=== PATIENT | male | born 1960 | race Caucasian/White ===

== ENCOUNTER 2022-02-19 21:29 | Inpatient (IN) ==
--- NOTE | 2022-02-19 22:51 | Emergency Department Note ---
History of Present Illness General Chief complaint: Mental Health Evaluation Stated complaint: OVERDOSE Time Seen by Provider: 02/19/22 22:21 Source: patient and other (manager business information Monique) Mode of arrival: other (Police) Limitations: patient cooperation History of Present Illness Provider complaint: Overdose This is a 61-year-old male brought in for mental health evaluation. He is under a 302 warrant by the police. Apparently the patient sent multiple text messages to his contact stating that he wanted to end his life. Police got multiple 911 calls regarding this. When they went to check on him in his house he was difficult to arouse and required a sternal rub. He admitted to the police that he took a handful of Vicodin and drink wine. He had also told his ex- via text message that he had taken a handful of Vicodin. He currently denies taking overdose or being suicidal. Police state that he told them that he was suicidal and that if he was sent home he would go to [facility] and kill himself. The patient is adamantly denying suicidality or overdose. He states that he is upset because he is having custody issues over his 5-year-old son. His son currently lives in [place] with his ex-girlfriend. He states that he believes the child is being abused by his mother but that the "[employer]" scrap dealer does not believe him and keeps giving him back to his mother. The patient denie s any physical complaints. He denies any fever, headache, cough or cold symptoms, chest pain, shortness of breath, abdominal pain, vomiting, diarrhea or urinary symptoms. The patient states that he has no history of suicide attempt in the past. He denies any admissions for mental health. He is not on any medications for mental health and does not see a counselor. He does not drink alcohol regularly. He does not have any access to firearms. Home Medications Medication Instructions Recorded Confirmed Type acetaminophen 325 mg capsule 650 mg PO BID PRN pain 05/07/19 02/20/22 History Allergies Allergy/AdvReac Type Severity Reaction Status Date / Time No Known Allergies Allergy Verified 05/20/19 08:55 Past Med/Surg History Medical History Calcific tendinitis of left shoulder Family History Mother Breast cancer Father Lung cancer Social History Smoking Status: Unknown if ever smoked Hx Alcohol Use: Yes (couple drinks/week) Hx Substance Use: No Preferred Language: Citizen Of [place] Visual Impairment: No Limitations Hearing Ability: Normal current occupational status: employed 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 and A total of 10 systems reviewed and were otherwise negative Physical Exam Vital Signs Vital Signs - 24 hr 02/19/22 21:46 02/19/22 23:07 Temperature 36.8 C Temperature Source Oral Pulse Rate 106 H Pulse Rate [Finger] 93 H Pulse Rhythm Regular Pulse Strength Normal Respiratory Rate 18 18 Respiratory Effort / Characteristics Non-Labored Respiratory Depth Normal Respiratory Pattern Regular Blood Pressure 152/84 H Blood Pressure [Right Radial Artery] 138/82 Blood Pressure Mean 106 Blood Pressure Mean [Right Radial Artery] 100 Blood Pressure Position Sitting Pulse Oximetry 94 96 Oxygen Delivery Method Room Air Room Air Sepsis Recent Fever Within 48 Hours No Sepsis New/Unexplained Change in Mental Status N/A Sepsis Action Taken by Nursing No Action Required Constitutional: Vital signs reviewed. Eyes: Pupils are equal round reactive to light. Conjunctiva are noninjected. ENT: Mucous membranes are slightly dry. Neck supple without meningeal signs. Respiratory: Clear to auscultation bilaterally. Breath sounds are equal bilaterally. Cardiovascular: Regular rate and rhythm. No rubs or gallops. GI: Soft, nondistended and nontender. Bowel sounds are present. Musculoskeletal: No peripheral edema. Integumentary: No cyanosis. or jaundice. Neurological: The patient is awake and alert. Normal gait. Moves all extremities. Psychiatric: Patient is very agitated. Pressured speech. Medical Decision Making Differential Diagnosis Alcohol intoxication, mood disorder, suicide attempt, suicidal ideation, drug overdose Medical Records Attestation: I reviewed the patient's medical records. I did perform a limited focused review of portions of the patient's old chart on the electronic medical record. The patient has had no recent pertinent visits to this hospital. Home Medications Current Medication List: was personally reviewed by me Laboratory Data Attestation: I reviewed the patient's lab results. Result diagrams: 02/19/22 21:53 09/04/22 21:53 Lab Results 02/19/22 02/19/22 02/19/22 Range/Units 21:53 21:53 21:53 WBC 5.62 (4.8-10.8) K/ul RBC 4.70 (4.63-6.08) M/uL Hgb 14.4 (14.0-18.0) g/dl Hct 41.1 (40.1-51.0) % MCV 87.4 (80.0-100.0) fL MCH 30.6 (25.0-34.0) pg MCHC 35.0 (32.0-36.0) g/dL RDW Std Deviation 39.0 (36.4-46.3) fL RDW Coeff of Rossi 12.0 (11.5-14.5) % Plt Count 214 (130-400) K/uL MPV 9.8 (9.4-12.4) fL Immature Gran % (Auto) 0.4 % Neut % (Auto) 71.4 % Lymph % (Auto) 21.7 % [place] % (Auto) 5.0 % Eos % (Auto) 1.1 % Baso % (Auto) 0.4 % Neut # (Auto) 4.02 (1.4-6.5) K/uL Lymph # (Auto) 1.22 (1.2-3.4) K/uL [place] # (Auto) 0.28 (0.24-0.82) K/uL Eos # (Auto) 0.06 (0-0.50) K/uL Baso # (Auto) 0.02 (0-0.2) K/uL Immature Gran # (Auto) 0.02 (0.00-0.02) K/uL Sodium 141 (136-145) mmol/L Potassium 3.3 L (3.5-5.1) mmol/L Chloride 107 (98-107) mmol/L Carbon Dioxide 22 (21-32) mmol/L Anion Gap 12 H (3-11) BUN 15 (6-23) mg/dl Creatinine 1.01 (0.6-1.4) mg/dl Est Cr Clr Drug Dosing 76.8 ml/min Est GFR ( Amer) 92.6 ml/min Est GFR (Non-Af Amer) 79.9 ml/min BUN/Creatinine Ratio 14.9 (10-20) Glucose 111 H (70-99(Fasting)) mg/dl Calcium 9.4 (8.5-10.1) mg/dl Total Bilirubin 0.4 (0.2-1.0) mg/dl AST 11 L (13-39) U/L ALT 10 (7-52) U/L Alkaline Phosphatase 61 (34-104) U/L Total Protein 7.2 (6.0-8.3) gm/dl Albumin 4.4 (3.4-5.0) gm/dl Globulin 2.8 (2.5-4.0) gm/dl Albumin/Globulin Ratio 1.6 (0.9-2) TSH 4.728 H (0.300-4.500) uIu/ml Free T4 0.89 (0.61-1.60) ng/dl Urine Color Urine Appearance (Clear) Urine pH (4.5-7.5) Ur Specific [place] (1.000-1.030) Urine Protein (Negative) Urine Glucose (UA) (Negative) Urine Ketones (Negative) Urine Blood (Negative) Urine Nitrite (Negative) Urine Bilirubin (Negative) Urine Urobilinogen (Negative) Ur Leukocyte Esterase (Negative) Salicylates (3.0-30) mg/dl Urine Opiates Screen (Neg) Ur Methadone, Qual (Neg) Acetaminophen (10-30) ug/ml Urine Barbiturates (Neg) Ur Phencyclidine (PCP) (Neg) U Amphetamin/Meth Scrn (Neg) MDMA (Ecstasy) Screen (Neg) U Benzodiazepines Scrn (Neg) Ur Cocaine Metabolite (Neg) U Marijuana (THC) Screen (Neg) Ethyl Alcohol mg/dL (<10.0) mg/dl SARS-CoV-2, RNA, NAAT (NEGATIVE) 02/19/22 02/19/22 02/19/22 Range/Units 21:53 21:53 22:22 WBC (4.8-10.8) K/ul RBC (4.63-6.08) M/uL Hgb (14.0-18.0) g/dl Hct (40.1-51.0) % MCV (80.0-100.0) fL MCH (25.0-34.0) pg MCHC (32.0-36.0) g/dL RDW Std Deviation (36.4-46.3) fL RDW Coeff of Rossi (11.5-14.5) % Plt Count (130-400) K/uL MPV (9.4-12.4) fL Immature Gran % (Auto) % Neut % (Auto) % Lymph % (Auto) % [place] % (Auto) % Eos % (Auto) % Baso % (Auto) % Neut # (Auto) (1.4-6.5) K/uL Lymph # (Auto) (1.2-3.4) K/uL [place] # (Auto) (0.24-0.82) K/uL Eos # (Auto) (0-0.50) K/uL Baso # (Auto) (0-0.2) K/uL Immature Gran # (Auto) (0.00-0.02) K/uL Sodium (136-145) mmol/L Potassium (3.5-5.1) mmol/L Chloride (98-107) mmol/L Carbon Dioxide (21-32) mmol/L Anion Gap (3-11) BUN (6-23) mg/dl Creatinine (0.6-1.4) mg/dl Est Cr Clr Drug Dosing ml/min Est GFR ( Amer) ml/min Est GFR (Non-Af Amer) ml/min BUN/Creatinine Ratio (10-20) Glucose (70-99(Fasting)) mg/dl Calcium (8.5-10.1) mg/dl Total Bilirubin (0.2-1.0) mg/dl AST (13-39) U/L ALT (7-52) U/L Alkaline Phosphatase (34-104) U/L Total Protein (6.0-8.3) gm/dl Albumin (3.4-5.0) gm/dl Globulin (2.5-4.0) gm/dl Albumin/Globulin Ratio (0.9-2) TSH (0.300-4.500) uIu/ml Free T4 (0.61-1.60) ng/dl Urine Color Yellow Urine Appearance Clear (Clear) Urine pH 5.5 (4.5-7.5) Ur Specific [place] 1.007 (1.000-1.030) Urine Protein Negative (Negative) Urine Glucose (UA) Negative (Negative) Urine Ketones Trace H (Negative) Urine Blood Negative (Negative) Urine Nitrite Negative (Negative) Urine Bilirubin Negative (Negative) Urine Urobilinogen Negative (Negative) Ur Leukocyte Esterase Negative (Negative) Salicylates < 3.0 L (3.0-30) mg/dl Urine Opiates Screen (Neg) Ur Methadone, Qual (Neg) Acetaminophen < 3 L (10-30) ug/ml Urine Barbiturates (Neg) Ur Phencyclidine (PCP) (Neg) U Amphetamin/Meth Scrn (Neg) MDMA (Ecstasy) Screen (Neg) U Benzodiazepines Scrn (Neg) Ur Cocaine Metabolite (Neg) U Marijuana (THC) Screen (Neg) Ethyl Alcohol mg/dL 147.2 H (<10.0) mg/dl SARS-CoV-2, RNA, NAAT (NEGATIVE) 02/19/22 02/19/22 02/20/22 Range/Units 22:22 Unknown 01:36 WBC (4.8-10.8) K/ul RBC (4.63-6.08) M/uL Hgb (14.0-18.0) g/dl Hct (40.1-51.0) % MCV (80.0-100.0) fL MCH (25.0-34.0) pg MCHC (32.0-36.0) g/dL RDW Std Deviation (36.4-46.3) fL RDW Coeff of Rossi (11.5-14.5) % Plt Count (130-400) K/uL MPV (9.4-12.4) fL Immature Gran % (Auto) % Neut % (Auto) % Lymph % (Auto) % [place] % (Auto) % Eos % (Auto) % Baso % (Auto) % Neut # (Auto) (1.4-6.5) K/uL Lymph # (Auto) (1.2-3.4) K/uL [place] # (Auto) (0.24-0.82) K/uL Eos # (Auto) (0-0.50) K/uL Baso # (Auto) (0-0.2) K/uL Immature Gran # (Auto) (0.00-0.02) K/uL Sodium (136-145) mmol/L Potassium (3.5-5.1) mmol/L Chloride (98-107) mmol/L Carbon Dioxide (21-32) mmol/L Anion Gap (3-11) BUN (6-23) mg/dl Creatinine (0.6-1.4) mg/dl Est Cr Clr Drug Dosing ml/min Est GFR ( Amer) ml/min Est GFR (Non-Af Amer) ml/min BUN/Creatinine Ratio (10-20) Glucose (70-99(Fasting)) mg/dl Calcium (8.5-10.1) mg/dl Total Bilirubin (0.2-1.0) mg/dl AST (13-39) U/L ALT (7-52) U/L Alkaline Phosphatase (34-104) U/L Total Protein (6.0-8.3) gm/dl Albumin (3.4-5.0) gm/dl Globulin (2.5-4.0) gm/dl Albumin/Globulin Ratio (0.9-2) TSH (0.300-4.500) uIu/ml Free T4 (0.61-1.60) ng/dl Urine Color Urine Appearance (Clear) Urine pH (4.5-7.5) Ur Specific [place] (1.000-1.030) Urine Protein (Negative) Urine Glucose (UA) (Negative) Urine Ketones (Negative) Urine Blood (Negative) Urine Nitrite (Negative) Urine Bilirubin (Negative) Urine Urobilinogen (Negative) Ur Leukocyte Esterase (Negative) Salicylates (3.0-30) mg/dl Urine Opiates Screen Neg (Neg) Ur Methadone, Qual Neg (Neg) Acetaminophen < 3 L (10-30) ug/ml Urine Barbiturates Neg (Neg) Ur Phencyclidine (PCP) Neg (Neg) U Amphetamin/Meth Scrn Neg (Neg) MDMA (Ecstasy) Screen Neg (Neg) U Benzodiazepines Scrn Neg (Neg) Ur Cocaine Metabolite Neg (Neg) U Marijuana (THC) Screen Neg (Neg) Ethyl Alcohol mg/dL (<10.0) mg/dl SARS-CoV-2, RNA, NAAT NEGATIVE (NEGATIVE) MDM Narrative I did evaluate the patient as noted above. He is very agitated and uncooperative on initial evaluation. He is here under a 302 by the police. He told him that he would kill himself if he were sent home today. He stated specifically what road he would kill himself on as well. I did order a urine analysis. I did order and review the patient's blood work as noted in the electronic medical record. CBC is unremarkable. CMP demonstrates mild hypokalemia at 3.3. TSH is elevated but free T4 is within normal limits. Urine tox screen is negative. Screening for salicylates and acetaminophen are both negative. Serum alcohol is 147.2. A second acetaminophen level was sent. This was less than 3. The patient was evaluated by the mental health case advocate. I did also reevaluate the patient. He is now cooperative. He states that he became intoxicated and said stupid things. He stated that he did not feel suicidal. He stated that he was just frustrated with certain things in his life, particularly of the custody issue with his 5-year-old son in [place]. With his permission both the case advocate and I spoke to his ex- Hollie Dodson as well as his son Antonino. His ex- was not able to give us any sort of determination of whether or not he might be at risk for suicide although she did state that he has no prior history and has made no indication of being suicidal recently. His son also stated that he has had no prior history. He felt it was unlikely that his father was suicidal but he does live in [place] and it is unclear whether or not he would share his thoughts with him. I did have another long discussion with the patient as well as the case advocate. I did explain to him that I felt he needed inpatient psychiatric care as well as a safe environment given his behavior and statements made today. I did feel he was a risk to himself and showed poor judgment and insight as well as impulsivity. He refused inpatient treatment and so I did sign the 302. Bed search is currently underway. The patient was signed out to Dr. Palacio pending final disposition. Impression & Plan Mood disorder, Alcoholic intoxication, Suicidal ideation Discharge Plan Visit Data Chief Complaint: Mental Health Evaluation Stated Complaint: OVERDOSE ED Provider: Juan Jose Thomas Discharge Problem: Mood disorder, Alcoholic intoxication, Suicidal ideation Patient Disposition: Still a Patient Forms Stand Alone Forms: My [facility], Suicide Prevention Resources Prescriptions Prescriptions: No Action acetaminophen 325 mg capsule 650 mg PO BID PRN (Reason: pain) Referrals Referrals: PCP,NO [Primary Care Provider] -
[2022-02-19 22:57] LABS: Basophils # (auto) 0.02 K/uL (0-0.2); Basophils % (auto) 0.4 %; Eosinophils # (auto) 0.06 K/uL (0-0.50); Eosinophils % (auto) 1.1 %; Hematocrit (blood only) 41.1 % (40.1-51.0); Hemoglobin 14.4 g/dl (14.0-18.0); Immature Granulocytes # (auto) 0.02 K/uL (0.00-0.02); Immature Granulocytes % (auto) 0.4 %; Lymphocytes # (auto) 1.22 K/uL (1.2-3.4); Lymphocytes % (auto) 21.7 %; Mean Corpuscular Hemoglobin 30.6 pg (25.0-34.0); Mean Corpuscular Volume 87.4 fL (80.0-100.0); Mean Platelet Volume 9.8 fL (9.4-12.4); Monocytes # (auto) 0.28 K/uL (0.24-0.82); Neutrophils # (auto) 4.02 K/uL (1.4-6.5); Neutrophils % (auto) 71.4 %; Platelet Count 214 K/uL (130-400); White Blood Count 5.62 K/ul (4.8-10.8)
[2022-02-19 23:10] LABS: Albumin Globulin Ratio 1.6 (0.9-2); Albumin Level 4.4 gm/dl (3.4-5.0); BUN Creatinine Ratio 14.9 (10-20); Bilirubin,Total 0.4 mg/dl (0.2-1.0); Calcium 9.4 mg/dl (8.5-10.1); Creatinine Clr Calc Pharmacy 76.8 ml/min; Est GFR (African American) 92.6 ml/min; Est GFR (Non-African American) 79.9 ml/min; Globulin 2.8 gm/dl (2.5-4.0); Potassium 3.3 mmol/L (3.5-5.1); Total Protein 7.2 gm/dl (6.0-8.3)
[2022-02-19 23:11] LABS: Acetaminophen < 3 ug/ml (10-30); Salicylate < 3.0 mg/dl (3.0-30)
[2022-02-19 23:23] LABS: Thyroid Stimulating Hormone 4.728 uIu/ml (0.300-4.500)
[2022-02-19 23:54] LABS: Appearance Urine Clear (Clear); Bilirubin Urine Negative (Negative); Blood Urine Negative (Negative); Color Urine Yellow; Glucose Urine UA Negative (Negative); Ketones Urine Trace (Negative); Leukocyte Esterase Urine Negative (Negative); Nitrite Urine Negative (Negative); Protein Urine Negative (Negative); Specific Gravity Urine 1.007 (1.000-1.030); Urobilinogen Urine Negative (Negative); pH Urine 5.5 (4.5-7.5)
[2022-02-19 23:59] LABS: T4 Free Thyroxine 0.89 ng/dl (0.61-1.60)
[2022-02-20 00:14] LABS: Amphetamines+Metham, Urine Neg (Neg); Barbiturates, Urine Neg (Neg); Benzodiazepine, Urine Neg (Neg); Cocaine, Urine Neg (Neg); MDMA (Ecstacy), Urine Neg (Neg); Methadone, Urine Neg (Neg); Opiate, Urine Neg (Neg); Phencyclidine, Urine Neg (Neg)
--- NOTE | 2022-02-20 04:30 | Emergency Department Note ---
ED Visit Note Patient is under 302 we was pending disposition plan and signed over by Dr. Thomas; was admitted to [facility] for psychiatric evaluation at 4:30 AM .
[2022-02-20] MEDS ORDERED: ALUMINUM/MAGNESIUM SUSP 30 ML UDC PO PRN (05:11)
[2022-02-20] MEDS ORDERED: ACETAMINOPHEN 325 MG TAB PO PRN (05:11)
[2022-02-20] MEDS ORDERED: BISMUTH SUBSALICYLATE LIQD 236 ML PO PRN (05:11)
[2022-02-20] MEDS ORDERED: MAGNESIUM HYDROXIDE SUSP 30 ML UDC PO PRN (05:11)
[2022-02-20] MEDS ORDERED: SODIUM CHLORIDE 0.65% NA SOLN 45 ML (OCEAN) PRN (05:11)
[2022-02-20] MEDS ORDERED: hydrOXYzine HCl 25 MG TAB PO PRN ×2 (05:11)
[2022-02-20] MEDS ORDERED: LORazepam 1 MG TAB PO PRN ×3 (05:15)
[2022-02-20] MEDS ORDERED: Ativan PO Alcohol Withdrawal--Active Protocol PO PRN (05:15)
[2022-02-20] MEDS: FOLIC ACID 1 MG TAB PO SCH (08:12)
[2022-02-20] MEDS: THIAMINE HCL 100 MG TAB PO SCH (08:12)
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
[2022-02-20] MEDS ORDERED: MELATONIN 3 MG TAB PO PRN (11:11)
[2022-02-20] MEDS ORDERED: traZODone HCL 50 MG TAB PO PRN (11:11)
[2022-02-21] MEDS: THIAMINE HCL 100 MG TAB PO SCH (08:43)
[2022-02-21] MEDS: FOLIC ACID 1 MG TAB PO SCH (08:43)
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
--- NOTE | 2022-02-22 11:16 | Discharge Summary ---
Date of Service February 22, 2022 History of Present Illness Mark was brought to the ED via police after sending text messages to his ex- stating his intent to by suicide and that he had ingested Vicodin to this end as well as sending texts to other friends/family stating "I'm going to end my life" who also called 911 due to concern for his safety. He was very sedated when his ex- arrived and when police arrived he confirmed taking Vicodin and drinking wine as part of a suicide attempt. On arrival to the ED he denied taking any Vicodin reporting only ingestion of alcohol and once sober continued to deny any SI but given concerning statements to police and family he was placed on a 302 commitment. UDS was negative for any opioids nor other substances except alcohol. Notably he had also made statements to his ex- as noted in the 302 warrant stating "Mark state he wanted to be left alone to , as well as going to [address] and killing himself tomorrow if he is released tomorrow from [facility]". He denies having taken any Vicodin he notes he doesn't have it in the house and he's not sure why he even said that to police. He states yesterday he had friends over, had gone hiking, was having fun and then drinking vodka and wine together socially. He estimates he consumed about 2-3 shots of vodka and 1-2 glasses of wine. He notes he never drinks hard liquor so this was unusual and thinks it impacted him more than he realized. A legal custody case has been ongoing for the last 1.5 years regarding his 5 yo son and "the stress of it must have just boiled over". He describes recent stressors including ongoing custody issues regarding his 5 year old son who is currently living with his ex- girlfriend in [place] with an upcoming legal decision to be issued by the director of housing imminently. He reports his ex-girlfriend has been limiting his ability to talk with his son or contact him. This weekend he hasn't been able to talk to him and he really wanted to share some new hot wheel cars he bought him and his ex- girlfriend wouldn't let him talk to him or even share photos of him. He notes this has made him feel really "sad" and helpless because he feels like "his hands are tied" in regards to trying to get his son back. He's worried his legal rights and visitation could be taken away which is incredibly worrisome. He notes emotionally it's been so hard and he thinks this weekend he "just hit a brick wall". He states he's been using alcohol more this summer to cope with insomnia. Often wakes up at 3am and can't fall back asleep. He denies any current SI and feels like last night was "a cry for help". He endorses difficulty sleeping, due to ruminative worries about what will happen with his son's custody. He uses hiking and mountain biking and being with friends to help him cope with anxiety and stress. He denies hopelessness. He notes "I really just needs tools on how to cope with this situation of trying to co-parent and how to deal with it". He is not currently prescribed any psychiatric medications. Psychiatric ROS notable for no current nor history of symptoms of buster, psychosis, PTSD, OCD nor eating disorder. Physical Exam Vital Signs (Past 24 Hours) Last Vital Signs Temp 36.4 C L 02/22/22 06:31 Pulse 66 02/22/22 06:31 Resp 16 02/22/22 06:31 BP 130/81 02/22/22 06:31 Pulse Ox 96 02/20/22 18:11 O2 Del Method 02/20/22 18:11 See admission H&P and DOD summary. Principal Diagnosis Unspecified depressive disorder and Generalized anxiety disorder Psychiatric Data See daily stay summary. In short, patient was engaged with the social/therapeutic milieu of the unit, safety was maintained and the patient was cooperative with care. He was started on trazodone 25mg qhs prn for insomnia, no other medications were added as he preferred to start with outpatient therapy to help with depression and anxiety which was felt to be reasonable. If in the future depression does not improve with therapy then would recommend initiation of a low dose SSRI medication. Recommend he follows up with his PCP regarding elevated TSH level on admission though free T4 was normal at that time. A family session was held and safety plan was completed prior to discharge. He actively and insightfully participated in safety planning and in discussions about ways to seek support and recognizing warning signs and utilizing coping skills. He plans to avoid alcohol use after discharge. Reviewed books and mindfulness resources to help develop increased coping skills in the outpatient setting. Reviewed importance of seeking emergency care should SI re-occur or should they feel unsafe in the future which they agree to do. On the day of discharge he stated his mood was "good" and remained future-oriented including spending time with his older sons, hearing back on a custody decision regarding his young son, returning to work, talking with his sister, checking in with his neighbors and friends, mountain biking and going on hikes with friends, going to his niece's wedding this weekend and engaging in aftercare appointments for therapy and with his new PCP. Day of Discharge Assessment Today the patient voices readiness for discharge. They note improvement in mood and anxiety. They deny thoughts of harm to self or others. Thoughts are organized and they are clinically improved from admission. There is no evidence of psychosis. They improved in the hospital with support and medication adjustments. They agree to take medications as prescribed and keep follow-up appointments. At the time of the discharge they are deemed to be stable and manfred ropriate for outpatient level of care. They are not deemed to be at imminent risk of harm to self or others. They are aware of emergency and crisis services. Knows to call 911 or go to nearest emergency care center if in a crisis which cannot be handled as an outpatient. Transition of Care Transition Of Care Record: was reviewed with the patient Advance Directives Advance Directives Information Provided: Yes Advance Directives: No Mental Health Advance Directive: No Advance Directives on File: No Living Will: No Power of Biztalk Software Developer: No Advance Directives Reason:: Declines as Mental Health Visit. Suicide Risk Level Suicide Risk Level Comments: Acute risk is low given improvement in mood, denial of SI, lack of access to lethal means, plan to avoid substance use, improvement in sleep, hopefulness. Chronic risk is moderate given multiple non-modifiable risk factors including his age, gender, single, periods of impulsivity, stress of custody case (and risk could increase acutely after ruling if he loses custody) but also with protective factors including many supports, desire to be available for his young son and eagerness to begin therapy. Counseled on ways to reduce acute and chronic risk including engaging with outpatient providers, using safety plan if needed, utilizing supports, taking medication as needed for help with sleep and consideration of SSRI if mood symptoms worsen in the future, and using coping skills. Modifiable risk factors of SI, anxiety and depression were addressed during hospitalization through development of new coping skills, family meeting, safety planning, and medication adjustments and risk factor of alcohol use which he plans to avoid moving forward. Risk Factors Assessment Male: Yes : Yes Do You Have Access To A Gun?: No Substance Use Disorders: Yes Previous Attempt: No Previous Psychiatric Hospitalization: No Hopelessness: No Protective Factors Assessment Responsible for Young Children: Yes Employed: Yes Stable Relationships: Yes Supportive Family: Yes Discharge Data Lab Results 02/19/22 02/19/22 02/19/22 21:53 21:53 21:53 WBC 5.62 RBC 4.70 Hgb 14.4 Hct 41.1 MCV 87.4 MCH 30.6 MCHC 35.0 RDW Std Deviation 39.0 RDW Coeff of Rossi 12.0 Plt Count 214 MPV 9.8 Immature Gran % (Auto) 0.4 Neut % (Auto) 71.4 Lymph % (Auto) 21.7 Antelope % (Auto) 5.0 Eos % (Auto) 1.1 Baso % (Auto) 0.4 Neut # (Auto) 4.02 Lymph # (Auto) 1.22 Antelope # (Auto) 0.28 Eos # (Auto) 0.06 Baso # (Auto) 0.02 Immature Gran # (Auto) 0.02 Sodium 141 Potassium 3.3 L Chloride 107 Carbon Dioxide 22 Anion Gap 12 H BUN 15 Creatinine 1.01 Est Cr Clr Drug Dosing 76.8 Est GFR ( Amer) 92.6 Est GFR (Non-Af Amer) 79.9 BUN/Creatinine Ratio 14.9 Glucose 111 H Calcium 9.4 Total Bilirubin 0.4 AST 11 L ALT 10 Alkaline Phosphatase 61 Total Protein 7.2 Albumin 4.4 Globulin 2.8 Albumin/Globulin Ratio 1.6 TSH 4.728 H Free T4 0.89 Urine Color Urine Appearance Urine pH Ur Specific [place] Urine Protein Urine Glucose (UA) Urine Ketones Urine Blood Urine Nitrite Urine Bilirubin Urine Urobilinogen Ur Leukocyte Esterase Salicylates Urine Opiates Screen Ur Methadone, Qual Acetaminophen Urine Barbiturates Ur Phencyclidine (PCP) U Amphetamin/Meth Scrn MDMA (Ecstasy) Screen U Benzodiazepines Scrn Ur Cocaine Metabolite U Marijuana (THC) Screen Ethyl Alcohol mg/dL SARS-CoV-2, RNA, NAAT 02/19/22 02/19/22 02/19/22 21:53 21:53 22:22 WBC RBC Hgb Hct MCV MCH MCHC RDW Std Deviation RDW Coeff of Rossi Plt Count MPV Immature Gran % (Auto) Neut % (Auto) Lymph % (Auto) Antelope % (Auto) Eos % (Auto) Baso % (Auto) Neut # (Auto) Lymph # (Auto) Antelope # (Auto) Eos # (Auto) Baso # (Auto) Immature Gran # (Auto) Sodium Potassium Chloride Carbon Dioxide Anion Gap BUN Creatinine Est Cr Clr Drug Dosing Est GFR ( Amer) Est GFR (Non-Af Amer) BUN/Creatinine Ratio Glucose Calcium Total Bilirubin AST ALT Alkaline Phosphatase Total Protein Albumin Globulin Albumin/Globulin Ratio TSH Free T4 Urine Color Yellow Urine Appearance Clear Urine pH 5.5 Ur Specific [place] 1.007 Urine Protein Negative Urine Glucose (UA) Negative Urine Ketones Trace H Urine Blood Negative Urine Nitrite Negative Urine Bilirubin Negative Urine Urobilinogen Negative Ur Leukocyte Esterase Negative Salicylates < 3.0 L Urine Opiates Screen Ur Methadone, Qual Acetaminophen < 3 L Urine Barbiturates Ur Phencyclidine (PCP) U Amphetamin/Meth Scrn MDMA (Ecstasy) Screen U Benzodiazepines Scrn Ur Cocaine Metabolite U Marijuana (THC) Screen Ethyl Alcohol mg/dL 147.2 H SARS-CoV-2, RNA, NAAT 02/19/22 02/19/22 02/20/22 22:22 Unknown 01:36 WBC RBC Hgb Hct MCV MCH MCHC RDW Std Deviation RDW Coeff of Rossi Plt Count MPV Immature Gran % (Auto) Neut % (Auto) Lymph % (Auto) Antelope % (Auto) Eos % (Auto) Baso % (Auto) Neut # (Auto) Lymph # (Auto) Antelope # (Auto) Eos # (Auto) Baso # (Auto) Immature Gran # (Auto) Sodium Potassium Chloride Carbon Dioxide Anion Gap BUN Creatinine Est Cr Clr Drug Dosing Est GFR ( Amer) Est GFR (Non-Af Amer) BUN/Creatinine Ratio Glucose Calcium Total Bilirubin AST ALT Alkaline Phosphatase Total Protein Albumin Globulin Albumin/Globulin Ratio TSH Free T4 Urine Color Urine Appearance Urine pH Ur Specific [place] Urine Protein Urine Glucose (UA) Urine Ketones Urine Blood Urine Nitrite Urine Bilirubin Urine Urobilinogen Ur Leukocyte Esterase Salicylates Urine Opiates Screen Neg Ur Methadone, Qual Neg Acetaminophen < 3 L Urine Barbiturates Neg Ur Phencyclidine (PCP) Neg U Amphetamin/Meth Scrn Neg MDMA (Ecstasy) Screen Neg U Benzodiazepines Scrn Neg Ur Cocaine Metabolite Neg U Marijuana (THC) Screen Neg Ethyl Alcohol mg/dL SARS-CoV-2, RNA, NAAT NEGATIVE Hospital Course (1) Depression, unspecified: (2) Alcoholic intoxication: (3) Suicidal ideation: (4) Insomnia: (5) TSH elevation: Plan 02/21/22: Safety plan and family meeting. Continue current treatment plan. 02/20/22: The patient was admitted to the [facility] ([facility]) on q15 min checks (behavioral with suicide precautions) for safety. The patient will participate in group, recreational, and milieu therapies and will be offered additional individual and family sessions as clinically appropriate. -doesn't currently have a PCP, will need PCP f/up for TSH monitoring -melatonin 3mg qhs prn -trazodone 25mg qhs prn -he's very interested in starting outpatient therapy to help him cope with the stresses related to the custody kelly -AWSS with thiamine and folic acid Mental Health & Subst Abuse Tx Therapist Name of Therapist: Ely Ferraro Therapist's Date of Therapist Appointment: 03/01/22 Time of Therapist Appointment: 11:30 AM Therapy Appointment Comment: [address], [address] [place] Therapist Release of Information: Obtained, Reviewed and Signed Photonics Engineering Technologist Name of Photonics Engineering Technologist: None Post Discharge Appointments Primary Care Physician Name Of Family Doctor: Angeline Pond [facility] Date of Appointment with PCP: 02/23/22 Time of Appointment with PCP: 11:05am arrival 11:20am Provider Appointment Comment: [address], [place] [address] Primary Care Release of Information: Obtained, Reviewed and Signed Contact Information Discharge Discharge Address: [address] [place] [address] Discharge Plan Discharge Items Patient Disposition: Home - Self-Care Reason For Visit: MDD Discharge Diagnosis: Unspecified depression and Generalized anxiety disorder Activity: Resume your previous activity Non-emergency contact: Primary Care Provider and Therapist Call non-emergency contact if: you have any medication questions and your sym ptoms worsen Follow-up/Referrals: PCP,NO [Primary Care Provider] - Diet: Regular Addtl Attending Provider Instructions: Discussed optional resource of Headspace. SPECIAL CARE INSTRUCTIONS: 1. Follow through with your scheduled aftercare appointments. If unable to keep an appointment, please call to reschedule. 2. Take your medication only as prescribed. Medication should not be changed or stopped without the approval of your doctor. In the event of worsening symptoms or concerns about side effects, contact your doctor immediately. 3. Utilize new healthy coping skills, anger management skills, and stress management skills learned during your hospitalization. Journal feelings and process them with a support person. Identify stressors or situations that may result in relapse, deterioration or inappropriate behaviors and develop a plan to deal with those issues. 4. If your coping skills are ineffective and you are in crisis, contact your outpatient providers for direction. If unable to reach your providers, please call the [facility] CRISIS LINE AT , go to the [facility] walk-in center at [address], [place], or go to the closest Emergency Room. 5. Avoid alcohol and un-prescribed drugs. 6. You have been provided with the Mental Health Advance Directives Pamphlet for your review. 7. Your condition is stable for discharge to outpatient level of care, but recovery is an ongoing process. Ifthoughts to harm yourself or others return, follow the safety plan developed during your stay. Planning for a safe return home includes securing weapons. Our treatment team recommends weaponsbe removed from the home until your outpatient provider reassesses your progress. In rare cases where the items themselvescannot be removed, guns and ammunitionshould be secured separatelyand keys stored by a reliable personoutside of the home. If you were admitted on an involuntary commitment, the police or other legal authorities may be involved in this process. AFTERCARE APPOINTMENTS: * Please call your insurance company prior to your scheduled appointment to confirm your aftercare providers are covered. Take your insurance information to your appointments. WHO TO CALL AND WHEN: Medical Emergencies: For questions or emergencies related to your hospital stay, please contact the Inpatient Behavioral Health Unit at [phone]. A chainstitch felled seam operator is on-call 08/01 for the Behavioral Health Unit for emergencies At any time you feel your situation is an emergency, you may also call 911 immediately. Pending Studies at Discharge: No Stand-Alone Forms: My [facility] Medications and DC Order Prescriptions: New melatonin 3 mg Tablet 3 mg PO HS PRN (Reason: insomnia ) Qty: 1 0RF trazodone 50 mg Tablet 25 mg PO HS PRN (Reason: insomnia/depression) Qty: 30 0RF Discharge Orders: Discharge Order (Routine); Ordered 02/22/22 Ordered By: Preeti Gonzalez Admission Data Admit Date/Time: 02/20/22 04:12 Attending Provider: Preeti Gonzalez Admit Provider: Preeti Gonzalez Primary Care Provider: PCP,NO Other Interventions: Discharge Summary Assessment (RN) Last Done: 02/22/22 11:16 PSY Interdisciplinary Discharge Planning Last Done: 02/22/22 11:18 Coding Level of Care Code 43062 D/C day mgmt > 30 min Diagnoses Depression, unspecified F32.A Alcoholic intoxication F10.929 Suicidal ideation R45.851 Insomnia G47.00 TSH elevation R79.89 Time Spent (min) 45
== END 2022-02-22 12:39 | disposition home or self-care (01) | DRG 880 ==
LOC: ED 21:29 → 3S 02-20 04:12

== ENCOUNTER 2024-10-21 19:02 | Observation (INO) ==
[2024-10-21] MEDS: OPTIRAY 320 100ml IV ONE (19:25)
[2024-10-21 19:26] LABS: iSTAT Creatinine 1.4 mg/dl (0.6-1.3); iSTAT Hemoglobin 15.3 g/dl (14.0-18.0); iSTAT Ionized Calcium 1.22 mmol/l (1.12-1.32); iSTAT Potassium 4.1 mmol/L (3.3-5.0)
[2024-10-21] MEDS: OPTIRAY 320 125ml IV ONE (19:27)
[2024-10-21 19:28] LABS: Basophils # (auto) 0.02 K/uL (0.00-0.20); Basophils % (auto) 0.3 %; Eosinophils # (auto) 0.18 K/uL (0.00-0.50); Eosinophils % (auto) 2.3 %; Hematocrit (blood only) 43.3 % (42.0-52.0); Hemoglobin 15.6 g/dl (14.0-18.0); Immature Granulocytes # (auto) 0.02 K/uL (0.01-0.20); Immature Granulocytes % (auto) 0.3 %; Lymphocytes # (auto) 1.73 K/uL (1.20-3.40); Mean Corpuscular Hemoglobin 30.2 pg (25.0-34.0); Mean Corpuscular Volume 83.8 fL (80.0-100.0); Mean Platelet Volume 9.6 fL (9.4-12.4); Monocytes # (auto) 0.56 K/uL (0.11-0.59); Monocytes % (auto) 7.1 %; Neutrophils # (auto) 5.37 K/uL (1.40-6.50); Platelet Count 225 K/uL (130-400); RDW Coefficient of Variation 12.2 % (11.5-14.5); RDW Standard Deviation 37.2 fL (36.4-46.3); Red Blood Count 5.17 M/uL (4.70-6.10); White Blood Count 7.88 K/ul (4.8-10.8)
[2024-10-21 19:47] LABS: Albumin Globulin Ratio 1.5 (0.9-2); Albumin Level 4.6 gm/dl (3.4-5.0); BUN Creatinine Ratio 10.9 (10-20); Bilirubin,Total 0.5 mg/dl (0.2-1.0); Calcium 9.4 mg/dl (8.6-10.3); Creatinine Clr Calc Pharmacy 56.4 ml/min; Magnesium 2.1 mg/dl (1.7-2.4); Total Protein 7.6 gm/dl (6.0-8.3)
[2024-10-21 19:53] LABS: Troponin I High Sensitivity 4.8 pg/ml (0-20)
[2024-10-21 19:57] LABS: Partial Thromboplastin Ratio 0.9; Partial Thromboplastin Time 23 Seconds (21-31); Prothrombin Time 10.6 Seconds (9.0-12.0)
--- NOTE | 2024-10-21 20:23 | CT Scan Report ---
EXAM: CT angio neck with con CLINICAL HISTORY: neuro deficit, acute stroke suspected TECHNIQUE: Axial CT angiography of the neck was done with contrast and sagittal and coronal reformats with MIP reconstructions. One of the following dose reduction techniques were utilized for this exam: Automated exposure control, adjustment of the mA and/or kV according to patient size, use of iterative reconstruction. One of these 3D techniques was utilized: Maximum Intensity Pixel (MIP), 3D Reconstructed Images, Volume Rendered Images, Surface Shaded Rendering. COMPARISON: None. FINDINGS: The aortic arch shows mild atherosclerotic changes. Normal branching pattern noted. Bilateral common carotid arteries appear normal in caliber and contrast opacification. Calcified plaques are seen at the osteoproximal segments of internal carotid arteries, without significant luminal narrowing. The cervical portions of bilateral internal carotid arteries appear normal in caliber and contrast opacification. Bilateral external carotid arteries appear normal in caliber and contrast opacification. The visualized portions of bilateral vertebral arteries appear normal in caliber and contrast opacification. No arteriovenous malformation was noted. IMPRESSION: No critical stenosis in CT angiography of neck. The report was ready at 07:15 PM SCHOOL CUSTODIAN, 10/21/2024 and the call was completed at at 07:20 PM [facility], 10/21/[address] Lange was informed regarding the Negative stroke results. Electronically signed by Boogie Perez 10-21-2024 8:21 PM
--- NOTE | 2024-10-21 20:25 | CT Scan Report ---
EXAM: CT angio head w con CLINICAL HISTORY: neuro deficit, acute stroke suspected TECHNIQUE: Axial CT angiography of the head was done with 115 ml optiray 320 IV contrast and sagittal and coronal reformats with MIP reconstructions. One of the following dose reduction techniques were utilized for this exam: Automated exposure control, adjustment of the mA and/or kV according to patient size, use of iterative reconstruction. One of these 3D techniques was utilized: Maximum Intensity Pixel (MIP), 3D Reconstructed Images, Volume Rendered Images, Surface Shaded Rendering. COMPARISON: CT head same day reviewed, 10/21/2024 18:15:26 MAINTENANCE PARTS TECHNICIAN. FINDINGS: The cavernous portions of bilateral internal carotid arteries show intimal calcification without significant luminal narrowing. Bilateral middle cerebral arteries appear normal in caliber and contrast opacification. Right anterior cerebral artery is hypoplastic with a dominant left anterior cerebral artery, giving cortical branches to both sides, normal variant. The basilar artery and bilateral posterior cerebral arteries appear normal in caliber and contrast opacification. The visualized vertebral arteries appear normal in caliber and contrast opacification. No evidence of definite thrombus / arteriovenous malformation. IMPRESSION: No critical stenosis in CT angiography of the head. The report was ready at 07:15 PM MAINTENANCE PARTS TECHNICIAN, 10/21/2024 and the call was completed at at 07:20 PM [facility] [[email or web address]], 10/21/[address] Lange was informed regarding the Negative stroke results. Electronically signed by Boogie Perez 10-21-2024 8:22 PM
--- NOTE | 2024-10-21 20:25 | CT Scan Report ---
EXAM: CT head/brain wo con CLINICAL HISTORY: neuro deficit, acute stroke suspected TECHNIQUE: Axial non-contrast CT scan of the brain was performed from the skull base to the high parietal region. One of the following dose reduction techniques were utilized for this exam: Automated exposure control, adjustment of the mA and/or kV according to patient size, use of iterative reconstruction. COMPARISON: none. FINDINGS: Brain Parenchyma: Normal attenuation of the cerebral hemispheres, cerebellum, and brainstem. No evidence of acute infarct, hemorrhage, or mass effect. No abnormal areas of hypo- or hyperattenuation. Ventricular System: Ventricles are normal in size and configuration. No evidence of hydrocephalus or ventricular enlargement. Subarachnoid Spaces: Normal sulci and cisterns. No evidence of subarachnoid hemorrhage or extra-axial fluid collections. Cerebellum and Brainstem: Normal size and signal. No masses, lesions, or areas of abnormal density. Orbits: Normal appearance of the globes, optic nerves, and extraocular muscles. No evidence of orbital masses or abnormal density. Sinuses: Clear paranasal sinuses. No evidence of sinusitis or mucosal thickening. Mastoid Air Cells: Clear mastoid air cells. No evidence of mastoiditis. Skull: Normal skull morphology. IMPRESSION: 1. Normal CT of the head without contrast. 2. No evidence of acute infarct or hemorrhage. 3. Early signs of acute infarction may not be detected by CT scan and if clinically indicated, further evaluation by diffusion-weighted MRI may be considered. The report was ready at 07:15 PM [facility], 10/21/2024 and the call was completed at at 07:20 PM [facility], 10/21/[address] Lange was informed regarding the Negative stroke results. Electronically signed by Boogie Perez 10-21-2024 8:22 PM
--- NOTE | 2024-10-21 20:42 | History & Physical Report ---
Date of Service October 21, 2024 Assessment & Plan (1) Stroke-like symptoms: (2) Depression, unspecified: (3) Insomnia: (4) Hypothyroidism: Plan Please see Dr. Luque's addendum for assessment and plan details. I spent a total of 60minutes coordinating, documenting, and providing care for this patient excluding time spent in the performance of separately billed services or time spent by another provider/QHP. History of Present Illness Chief Complaint: strokelike symptoms Primary Care Provider: Gabbi Pond PA-C This is a 64yo M with PMH of acquired hypothyroidism, GERD, history of alcohol dependence and other medical problems listed below who presents with weakness and numbness of R side that started this evening. Patient was in normal state of health until this afternoon when he was driving around town running an errand when he felt "like I was going to blackout". Symptoms resolved quickly and he continued driving to complete errands and returned home. Was attempting to power wash his back porch when sensation occurred again but resolved when he sat down. During a Zoom meeting around 1800, patient developed numbness in right arm extending up to jaw and right side of face. Symptoms did not resolve and was home alone, so he walked into his backyard to get his neighbor's attention, who suggested he come in for further evaluation. Patient decided he wanted to wait at home for 30 minutes to see if symptoms would subside. When standing up from chair felt weak and believes he fell to the ground but is unsure of any further details and event was unwitnessed. Was ultimately driven by his neighbor to the ED for further evaluation. During time of evaluation in ED, he states the numbness in right arm has resolved and speech intact. States he still has some paresthesias of his right face. Denies any weakness at rest but feels he would have a hard time staying balanced if he were to stand up. Was evaluated by [facility] and TNK was not administered. Denies any fever, chills, recent illness, chest pain, palpitations, shortness of breath, nausea, vomiting, abdominal pain, dysuria, diarrhea or constipation. Does not feel confused. Endorses significant amount of emotional stress over the past week due to ongoing custody kelly and conflict with his resident director. History of alcohol dependence per chart review - endorsing drinking 1-2 IPAs 4 nights / week. Follows at [facility] for therapy and states he has PTSD and mild depression. Does not take medication for these conditions. Allergies Allergy/AdvReac Type Severity Reaction Status Date / Time No Known Allergies Allergy Verified 10/21/24 19:28 Home Medications Medication Instructions Recorded Confirmed Type trazodone 50 mg tablet 25 mg (1/2 x 50 mg) PO HS PRN 02/22/22 10/21/24 Rx insomnia/depression #30 tabs levothyroxine 75 mcg tablet 75 mcg PO DAILYBB 10/21/24 10/21/24 History Past Med/Surg History Problem List (Updated 10/22/24 @ 00:41 by Kaia Lange MD) Stroke-like symptoms (Acute) Medical History Hypothyroidism Insomnia Depression, unspecified Suicide attempt Calcific tendinitis of left shoulder Suicidal ideation Surgical History History of ear surgery Family History Mother Breast cancer Father Lung cancer Social History Smoking Status: Never smoker Second Hand Exposure: No; Do You Dip or Chew Tobacco: No; Tobacco Cessation Education Requested by Patient: No Hx Alcohol Use: Yes Alcohol type: beer Hx Substance Use: No Preferred Language: Citizen Of [place] Communication Ability: Effective Visual Impairment: No Limitations Hearing Ability: Normal 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 Physical Exam Physical Exam: General Appearance: WD/WN, vitals as above, NAD, sitting up in bed, pleasant, sporadic conversation but re-directable Head: normocephalic, atraumatic Eyes: normal inspection, PERRL, conjunctivae normal, anicteric sclerae ENT: external ear and nose normal, oropharynx normal Neck: normal visual inspection Respiratory: normal respiratory effort, lungs clear to auscultation, no wheeze, rales, rhonchi. No accessory muscle use Cardiovascular: regular rate, rhythm, normal peripheral pulses, no BLE edema Chest: normal inspection of chest Abdomen/GI: normal bowel sounds, soft, nontender, no hepatosplenomegaly Extremities/Musculoskeletal: no cyanosis or clubbing, extremities motor strength 5/5 Neurologic: PERRL, EOMI, accommodation nl, no face palsy, no dysarthria, CN's II-XI intact bilaterally and moves all extremities, active ROM in all 4 quadrants, 5/5 JEFE RUE, LUE and LLL. Initially 4/5 strength in RLE but when retested minutes later was 5/5 Psychiatric: A+Ox3, anxious Skin: no rashes, normal color, warm/dry Results & Data Results & Data Vital Signs (Past 12 Hours) Vital Signs Temp Pulse Resp BP Pulse Ox O2 Del Method 10/21/24 20:18 72 18 96 10/21/24 20:15 156/100 H 10/21/24 20:15 156/100 H 10/21/24 20:06 72 12 97 10/21/24 20:00 80 15 97 10/21/24 20:00 179/106 H 10/21/24 20:00 179/106 H 10/21/24 20:00 179/106 H 10/21/24 20:00 179/106 H 10/21/24 19:51 75 16 97 10/21/24 19:42 75 16 97 10/21/24 19:34 167/109 H 10/21/24 19:33 77 22 98 10/21/24 19:30 180/111 H 10/21/24 19:30 180/111 H 10/21/24 19:30 81 10/21/24 19:27 79 19 96 10/21/24 19:24 80 20 97 10/21/24 19:23 181/111 H 10/21/24 19:23 181/111 H 10/21/24 19:12 83 17 97 10/21/24 19:10 187/106 H 10/21/24 19:10 187/106 H 10/21/24 19:10 187/106 H 10/21/24 19:10 187/106 H 10/21/24 19:09 Room Air 10/21/24 19:04 36.6 C 69 17 180/107 H 97 Room Air 10/21/24 19:02 97 Room Air Laboratory Results Short CBC 10/21/24 Range/Units 19:12 WBC 7.88 (4.8-10.8) K/ul Hgb 15.6 (14.0-18.0) g/dl Hct 43.3 (42.0-52.0) % Plt Count 225 (130-400) K/uL BMP 10/21/24 19:12 Sodium 138 Potassium 4.0 Chloride 103 Carbon Dioxide 31 BUN 14 Creatinine 1.28 Glucose 107 H Calcium 9.4 Liver Function 10/21/24 Range/Units 19:12 Total Bilirubin 0.5 (0.2-1.0) mg/dl AST 14 (13-39) U/L ALT 13 (7-52) U/L Alkaline Phosphatase 61 (34-104) U/L Albumin 4.6 (3.4-5.0) gm/dl Diagnostic Findings Head CT 10/21/24 19:08 EXAM: CT head/brain wo con CLINICAL HISTORY: neuro deficit, acute stroke suspected TECHNIQUE: Axial non-contrast CT scan of the brain was performed from the skull base to the high parietal region. One of the following dose reduction techniques were utilized for this exam: Automated exposure control, adjustment of the mA and/or kV according to patient size, use of iterative reconstruction. COMPARISON: none. FINDINGS: Brain Parenchyma: Normal attenuation of the cerebral hemispheres, cerebellum, and brainstem. No evidence of acute infarct, hemorrhage, or mass effect. No abnormal areas of hypo- or hyperattenuation. Ventricular System: Ventricles are normal in size and configuration. No evidence of hydrocephalus or ventricular enlargement. Subarachnoid Spaces: Normal sulci and cisterns. No evidence of subarachnoid hemorrhage or extra-axial fluid collections. Cerebellum and Brainstem: Normal size and signal. No masses, lesions, or areas of abnormal density. Orbits: Normal appearance of the globes, optic nerves, and extraocular muscles. No evidence of orbital masses or abnormal density. Sinuses: Clear paranasal sinuses. No evidence of sinusitis or mucosal thickening. Mastoid Air Cells: Clear mastoid air cells. No evidence of mastoiditis. Skull: Normal skull morphology. IMPRESSION: 1. Normal CT of the head without contrast. 2. No evidence of acute infarct or hemorrhage. 3. Early signs of acute infarction may not be detected by CT scan and if clinically indicated, further evaluation by diffusion-weighted MRI may be considered. The report was ready at 07:15 PM [facility], 10/21/2024 and the call was completed at at 07:20 PM [facility], 10/21/[address] Lange was informed regarding the Negative stroke results. Electronically signed by Boogie Perez 10-21-2024 8:22 PM Head CTA 10/21/24 19:08 EXAM: CT angio head w con CLINICAL HISTORY: neuro deficit, acute stroke suspected TECHNIQUE: Axial CT angiography of the head was done with 115 ml optiray 320 IV contrast and sagittal and coronal reformats with MIP reconstructions. One of the following dose reduction techniques were utilized for this exam: Automated exposure control, adjustment of the mA and/or kV according to patient size, use of iterative reconstruction. One of these 3D techniques was utilized: Maximum Intensity Pixel (MIP), 3D Reconstructed Images, Volume Rendered Images, Surface Shaded Rendering. COMPARISON: CT head same day reviewed, 10/21/2024 18:15:26 [facility]. FINDINGS: The cavernous portions of bilateral internal carotid arteries show intimal calcification without significant luminal narrowing. Bilateral middle cerebral arteries appear normal in caliber and contrast opacification. Right anterior cerebral artery is hypoplastic with a dominant left anterior cerebral artery, giving cortical branches to both sides, normal variant. The basilar artery and bilateral posterior cerebral arteries appear normal in caliber and contrast opacification. The visualized vertebral arteries appear normal in caliber and contrast opacification. No evidence of definite thrombus / arteriovenous malformation. IMPRESSION: No critical stenosis in CT angiography of the head. The report was ready at 07:15 PM [facility], 10/21/2024 and the call was completed at at 07:20 PM [facility], 10/21/[address] Lange was informed regarding the Negative stroke results. Electronically signed by Boogie Perez 10-21-2024 8:22 PM Neck CTA 10/21/24 19:08 EXAM: CT angio neck with con CLINICAL HISTORY: neuro deficit, acute stroke suspected TECHNIQUE: Axial CT angiography of the neck was done with contrast and sagittal and coronal reformats with MIP reconstructions. One of the following dose reduction techniques were utilized for this exam: Automated exposure control, adjustment of the mA and/or kV according to patient size, use of iterative reconstruction. One of these 3D techniques was utilized: Maximum Intensity Pixel (MIP), 3D Reconstructed Images, Volume Rendered Images, Surface Shaded Rendering. COMPARISON: None. FINDINGS: The aortic arch shows mild atherosclerotic changes. Normal branching pattern noted. Bilateral common carotid arteries appear normal in caliber and contrast opacification. Calcified plaques are seen at the osteoproximal segments of internal carotid arteries, without significant luminal narrowing. The cervical portions of bilateral internal carotid arteries appear normal in caliber and contrast opacification. Bilateral external carotid arteries appear normal in caliber and contrast opacification. The visualized portions of bilateral vertebral arteries appear normal in caliber and contrast opacification. No arteriovenous malformation was noted. IMPRESSION: No critical stenosis in CT angiography of neck. The report was ready at 07:15 PM [facility], 10/21/2024 and the call was completed at at 07:20 PM [facility], 10/21/[address] Lange was informed regarding the Negative stroke results. Electronically signed by Boogie Perez 10-21-2024 8:21 PM Supervising Physician Co-Signing Physician Notes IM ATTENDING : Patient seen and examined. History obtained from patient, family, and records. Concur with salient points upon review of preceding documentation by Ms. Tiki Sousa PA-C. In addition, patient denies seizures. Transient tinnitus symptoms in the right ear AD : Impacted cerumen, TM not visualized : Patent EAC, intact TM I take responsibility for plan of care below. FINAL ASSESSMENT AND PLAN as follows : TIA presenting as waxing/waning RUE numbness more pronounced on standing position as per patient Hypertension, elevated secondary to above Hypothyroidism, euthyroid as of today's TSH History cutaneous neurofibromatosis as per records Past alcohol abuse OBS Medical telemetry Neurochecks Check orthostatic vitals Aspirin for stroke prevention, permissive hypertension until stroke ruled out MRI brain, TTE for stroke workup Further management contingent on above workup results Ceruminolytic application for right ear DVT prophylaxis. Lovenox subcu Full code I spent a total of 30 minutes coordinating, documenting, and providing care for this patientexcludingtime spent by another provider/QHP. Text document was generated using [employer] voice recognition software. It may contain grammatical or spelling errors. Kindly contact undersigned for clarification of any documentation item in question.
--- NOTE | 2024-10-21 20:43 | Emergency Department Note ---
ED DC CONDITION Conditon at Discharge Condition at Discharge: Fair Impression & Plan Stroke-like symptoms ED Provider Note NAME: KYLE ELLIS AGE: 64 SEX: M : 1960 ARRIVES VIA: Walk-In INFORMANT: Patient, ED PROVIDER(S): Kaia Lange MD CHIEF COMPLAINT: Confusion, right arm weakness/ HPI: This is a 64-year-old male presented for confusion. Patient states that he was on the phone when the presenting of light asked "are you okay ". He states he fell somewhat confused and does not member what else happened. He states he feels numbness in his right arm and is possibly weak. He reports no fall, trauma. Slight headache at this time. He states he felt like he had difficulty finding words. ROS: See above HPI for pertinent positives & negatives. A total of 10 systems reviewed and were otherwise negative. PAST MEDICAL HISTORY: See Below PAST SURGICAL HISTORY: See Below FAMILY HISTORY: See Below SOCIAL HISTORY: See Below HOME MEDICATIONS: See Below ALLERGIES: See Below VITALS: See Below PHYSICAL EXAMINATION: General: resting comfortably in no acute distress Head: Normocephalic and atraumatic Eyes: Normal inspection, extraocular muscles intact Ear, nose, throat: Normal external exam Neck: Normal range of motion Respiratory: lungs clear to auscultation bilaterally Cardiovascular: Regular rate/rhythm, no murmur GI: soft, nontender, no guarding or rebound Extremities: nontender, moves all extremities Neuro: 4/5 strength in the right lower extremity, 5/5 strength in the left lower extremity, right upper extremity with apparent motor drift, left lower extremity 5/5 strength Skin: Warm, dry, and intact MEDICAL DECISION MAKING: This is a 64-year-old male presenting for confusion. Last known well was about 1 hour prior to arrival of the ER. He does have weakness in the right upper extremity as well as right lower extremity. Stroke alert was called at triage. - Does not take blood thinners at this time. -Stroke neurologist consulted, Dr. Frost. He will see the patient via telestroke cart. -Has been delaying CAT scan reads. I have reached out to a junior legal secretary in the ER as well as radiology junior legal secretary to call the radiology group. This will need to be read prior to TNK administration as per stroke neurologist -Ultimately patient and family declined TNK at this time. -CT imaging resulted as negative without acute stenosis or intracranial hemorrhage or LVO -Patient admitted for further inpatient workup including MRI Differential diagnosis: Stroke, transient global amnesia, TIA, stress, dissection Independent History obtained from: Diagnostics interpreted by me: ECG: ECG independently interpreted by me with normal sinus rhythm, rate of 79, normal KS, normal QRS, normal QTc, no ST segment elevations consistent with STEMI criteria Cardiac Monitoring: An order was placed for continuous cardiac monitoring. The monitor shows a rate of 70 with sinus rhythm. Past Med/Surg History Problem List (Updated 10/22/24 @ 00:41 by Kaia Lange MD) Stroke-like symptoms (Acute) Medical History Hypothyroidism Insomnia Depression, unspecified Suicide attempt Calcific tendinitis of left shoulder Suicidal ideation Surgical History History of ear surgery Family History Mother Breast cancer Father Lung cancer Social History Smoking Status: Never smoker Second Hand Exposure: No; Do You Dip or Chew Tobacco: No; Tobacco Cessation Education Requested by Patient: No Hx Alcohol Use: Yes Alcohol type: beer Hx Substance Use: No Preferred Language: Urdu Communication Ability: Effective Visual Impairment: No Limitations Hearing Ability: Normal Facility Practice Specialist Required: No Beliefs That Will Affect Care: None Current Living Situation: Significant Other current occupational status: employed 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 Other Information That Helps Us Care for You: No Feels Safe at Home: Yes Safety Concerns: Feels Safe At This Time Assistive Devices: Glasses Allergies Allergies Allergy/AdvReac Type Severity Reaction Status Date / Time No Known Allergies Allergy Verified 10/21/24 19:28 Home Meds Home Medications Medication Instructions Recorded Confirmed levothyroxine 75 mcg tablet 75 mcg PO DAILYBB 10/21/24 10/21/24 Previous Rx's Medication Instructions Recorded trazodone 50 mg tablet 25 mg (1/2 x 50 mg) PO HS PRN 02/22/22 insomnia/depression #30 tabs Results & Data (ED) Vital Signs Vital Signs - 24 hr 10/21/24 19:02 10/21/24 19:04 10/21/24 19:09 Temperature 36.6 C Temperature Source Temporal Artery Scan Pulse Rate 69 Pulse Rate [Apical] Pulse Rate from SpO2 Sensor Pulse Rhythm Regular Pulse Rhythm [Apical] Pulse Strength Normal Respiratory Rate 17 Respiratory Effort / Characteristics Non-Labored Non-Labored Spontaneous Respiratory Depth Normal Normal Respiratory Pattern Regular Blood Pressure 180/107 H Blood Pressure [Right Arm] Blood Pressure Mean 131 Blood Pressure Mean [Right Arm] Blood Pressure Position Sitting Pulse Oximetry 97 97 Oxygen Delivery Method Room Air Room Air Room Air Sepsis Recent Fever Within 48 Hours No Sepsis New/Unexplained Change in Mental Status N/A Sepsis Action Taken by Nursing No Action Required 10/21/24 19:10 10/21/24 19:10 10/21/24 19:10 Temperature Temperature Source Pulse Rate Pulse Rate [Apical] Pulse Rate from SpO2 Sensor Pulse Rhythm Pulse Rhythm [Apical] Pulse Strength Respiratory Rate Respiratory Effort / Characteristics Respiratory Depth Respiratory Pattern Blood Pressure 187/106 H 187/106 H 187/106 H Blood Pressure [Right Arm] Blood Pressure Mean 149 149 149 Blood Pressure Mean [Right Arm] Blood Pressure Position Pulse Oximetry Oxygen Delivery Method Sepsis Recent Fever Within 48 Hours Sepsis New/Unexplained Change in Mental Status Sepsis Action Taken by Nursing 10/21/24 19:10 10/21/24 19:12 10/21/24 19:23 Temperature Temperature Source Pulse Rate 83 Pulse Rate [Apical] Pulse Rate from SpO2 Sensor 85 Pulse Rhythm Pulse Rhythm [Apical] Pulse Strength Respiratory Rate 17 Respiratory Effort / Characteristics Respiratory Depth Respiratory Pattern Blood Pressure 187/106 H 181/111 H Blood Pressure [Right Arm] Blood Pressure Mean 149 123 Blood Pressure Mean [Right Arm] Blood Pressure Position Pulse Oximetry 97 Oxygen Delivery Method Sepsis Recent Fever Within 48 Hours Sepsis New/Unexplained Change in Mental Status Sepsis Action Taken by Nursing 10/21/24 19:23 10/21/24 19:24 10/21/24 19:27 Temperature Temperature Source Pulse Rate 80 79 Pulse Rate [Apical] Pulse Rate from SpO2 Sensor 80 79 Pulse Rhythm Pulse Rhythm [Apical] Pulse Strength Respiratory Rate 20 19 Respiratory Effort / Characteristics Respiratory Depth Respiratory Pattern Blood Pressure 181/111 H Blood Pressure [Right Arm] Blood Pressure Mean 123 Blood Pressure Mean [Right Arm] Blood Pressure Position Pulse Oximetry 97 96 Oxygen Delivery Method Sepsis Recent Fever Within 48 Hours Sepsis New/Unexplained Change in Mental Status Sepsis Action Taken by Nursing 10/21/24 19:30 10/21/24 19:30 10/21/24 19:30 Temperature Temperature Source Pulse Rate 81 Pulse Rate [Apical] Pulse Rate from SpO2 Sensor Pulse Rhythm Pulse Rhythm [Apical] Pulse Strength Respiratory Rate Respiratory Effort / Characteristics Respiratory Depth Respiratory Pattern Blood Pressure 180/111 H 180/111 H Blood Pressure [Right Arm] Blood Pressure Mean 123 123 Blood Pressure Mean [Right Arm] Blood Pressure Position Pulse Oximetry Oxygen Delivery Method Sepsis Recent Fever Within 48 Hours Sepsis New/Unexplained Change in Mental Status Sepsis Action Taken by Nursing 10/21/24 19:33 10/21/24 19:34 10/21/24 19:42 Temperature Temperature Source Pulse Rate 77 75 Pulse Rate [Apical] Pulse Rate from SpO2 Sensor 76 75 Pulse Rhythm Pulse Rhythm [Apical] Pulse Strength Respiratory Rate 22 16 Respiratory Effort / Characteristics Respiratory Depth Respiratory Pattern Blood Pressure 167/109 H Blood Pressure [Right Arm] Blood Pressure Mean 119 Blood Pressure Mean [Right Arm] Blood Pressure Position Pulse Oximetry 98 97 Oxygen Delivery Method Sepsis Recent Fever Within 48 Hours Sepsis New/Unexplained Change in Mental Status Sepsis Action Taken by Nursing 10/21/24 19:51 10/21/24 20:00 10/21/24 20:00 Temperature Temperature Source Pulse Rate 75 Pulse Rate [Apical] Pulse Rate from SpO2 Sensor 76 Pulse Rhythm Pulse Rhythm [Apical] Pulse Strength Respiratory Rate 16 Respiratory Effort / Characteristics Respiratory Depth Respiratory Pattern Blood Pressure 179/106 H 179/106 H Blood Pressure [Right Arm] Blood Pressure Mean 152 152 Blood Pressure Mean [Right Arm] Blood Pressure Position Pulse Oximetry 97 Oxygen Delivery Method Sepsis Recent Fever Within 48 Hours Sepsis New/Unexplained Change in Mental Status Sepsis Action Taken by Nursing 10/21/24 20:00 10/21/24 20:00 10/21/24 20:00 Temperature Temperature Source Pulse Rate 80 Pulse Rate [Apical] Pulse Rate from SpO2 Sensor 80 Pulse Rhythm Pulse Rhythm [Apical] Pulse Strength Respiratory Rate 15 Respiratory Effort / Characteristics Respiratory Depth Respiratory Pattern Blood Pressure 179/106 H 179/106 H Blood Pressure [Right Arm] Blood Pressure Mean 152 152 Blood Pressure Mean [Right Arm] Blood Pressure Position Pulse Oximetry 97 Oxygen Delivery Method Sepsis Recent Fever Within 48 Hours Sepsis New/Unexplained Change in Mental Status Sepsis Action Taken by Nursing 10/21/24 20:06 10/21/24 20:15 10/21/24 20:15 Temperature Temperature Source Pulse Rate 72 Pulse Rate [Apical] Pulse Rate from SpO2 Sensor 73 Pulse Rhythm Pulse Rhythm [Apical] Pulse Strength Respiratory Rate 12 Respiratory Effort / Characteristics Respiratory Depth Respiratory Pattern Blood Pressure 156/100 H 156/100 H Blood Pressure [Right Arm] Blood Pressure Mean 108 108 Blood Pressure Mean [Right Arm] Blood Pressure Position Pulse Oximetry 97 Oxygen Delivery Method Sepsis Recent Fever Within 48 Hours Sepsis New/Unexplained Change in Mental Status Sepsis Action Taken by Nursing 10/21/24 20:18 10/21/24 20:36 10/21/24 21:00 Temperature Temperature Source Pulse Rate 72 84 Pulse Rate [Apical] 75 Pulse Rate from SpO2 Sensor 73 85 Pulse Rhythm Pulse Rhythm [Apical] Regular Pulse Strength Respiratory Rate 18 15 17 Respiratory Effort / Characteristics Non-Labored Spontaneous Respiratory Depth Normal Respiratory Pattern Regular Blood Pressure Blood Pressure [Right Arm] 168/116 H Blood Pressure Mean Blood Pressure Mean [Right Arm] 133 Blood Pressure Position Pulse Oximetry 96 97 97 Oxygen Delivery Method Room Air Room Air Sepsis Recent Fever Within 48 Hours Sepsis New/Unexplained Change in Mental Status Sepsis Action Taken by Nursing 10/21/24 21:03 10/21/24 21:30 Temperature Temperature Source Pulse Rate 70 72 Pulse Rate [Apical] Pulse Rate from SpO2 Sensor 71 71 Pulse Rhythm Pulse Rhythm [Apical] Pulse Strength Respiratory Rate 16 14 Respiratory Effort / Characteristics Respiratory Depth Respiratory Pattern Blood Pressure 168/116 H 144/89 H Blood Pressure [Right Arm] Blood Pressure Mean 133 102 Blood Pressure Mean [Right Arm] Blood Pressure Position Pulse Oximetry 94 98 Oxygen Delivery Method Room Air Room Air Sepsis Recent Fever Within 48 Hours Sepsis New/Unexplained Change in Mental Status Sepsis Action Taken by Nursing Laboratory Data 10/21/24 19:12 10/21/24 19:12 Lab Results 10/21/24 10/21/24 Range/Units 19:12 19:14 WBC 7.88 (4.8-10.8) K/ul RBC 5.17 (4.70-6.10) M/uL Hgb 15.6 (14.0-18.0) g/dl POC Hgb 15.3 (14.0-18.0) g/dl Hct 43.3 (42.0-52.0) % POC Hct 45 (42-52) % MCV 83.8 (80.0-100.0) fL MCH 30.2 (25.0-34.0) pg MCHC 36.0 (32.0-36.0) g/dL RDW Std Deviation 37.2 (36.4-46.3) fL RDW Coeff of Rossi 12.2 (11.5-14.5) % Plt Count 225 (130-400) K/uL MPV 9.6 (9.4-12.4) fL Immature Gran % (Auto) 0.3 % Neut % (Auto) 68.0 % Lymph % (Auto) 22.0 % Cowley % (Auto) 7.1 % Eos % (Auto) 2.3 % Baso % (Auto) 0.3 % Neut # (Auto) 5.37 (1.40-6.50) K/uL Lymph # (Auto) 1.73 (1.20-3.40) K/uL Cowley # (Auto) 0.56 (0.11-0.59) K/uL Eos # (Auto) 0.18 (0.00-0.50) K/uL Baso # (Auto) 0.02 (0.00-0.20) K/uL Immature Gran # (Auto) 0.02 (0.01-0.20) K/uL PT 10.6 (9.0-12.0) Seconds INR 1.0 (0.9-1.1) APTT 23 (21-31) Seconds PTT Ratio 0.9 POC Sodium 140 (135-144) mmol/L Sodium 138 (136-145) mmol/L POC Potassium 4.1 (3.3-5.0) mmol/L Potassium 4.0 (3.5-5.1) mmol/L POC Chloride 101 (101-112) mmol/L Chloride 103 (98-107) mmol/L Carbon Dioxide 31 (21-32) mmol/L POC Total CO2 28 (24-31) mmol/L Anion Gap 4 (3-11) POC Anion Gap 16.0 (16-25) mmol/L POC BUN 15 (7-18) mg/dl BUN 14 (6-23) mg/dl Creatinine 1.28 (0.6-1.4) mg/dl POC Creatinine 1.4 H (0.6-1.3) mg/dl Est Cr Clr Drug Dosing 56.4 ml/min eGFR 62.50 BUN/Creatinine Ratio 10.9 (10-20) Glucose 107 H (70-99(Fasting)) mg/dl POC Glucose (other) 109 H (70-99) mg/dl Calcium 9.4 (8.6-10.3) mg/dl POC Ioniz Calcium Ave 1.22 (1.12-1.32) mmol/l Magnesium 2.1 (1.7-2.4) mg/dl Total Bilirubin 0.5 (0.2-1.0) mg/dl AST 14 (13-39) U/L ALT 13 (7-52) U/L Alkaline Phosphatase 61 (34-104) U/L Troponin I High Sens 4.8 (0-20) pg/ml Total Protein 7.6 (6.0-8.3) gm/dl Albumin 4.6 (3.4-5.0) gm/dl Globulin 3.0 (2.5-4.0) gm/dl Albumin/Globulin Ratio 1.5 (0.9-2) TSH 3.911 (0.300-4.500) uIu/ml Lyme Disease Screen Negative (Negative) Administered Medications Carbamide Peroxide (Carbamide Peroxide 6.5% 15 Ml Btl) 5 drops OTR BID ARIEL Stop: 10/25/24 22:44 Last Admin: 10/21/24 23:48 Dose: 5 drops Documented By: PRIYA Sodium Chloride (Nss) 1,000 mls @ 50 mls/hr IV .Q20H ONE Stop: 10/22/24 18:33 Last Admin: 10/21/24 23:58 Dose: 50 mls/hr Documented By: PRIYA Discontinued Medications Aspirin (Aspirin 81 Mg Chew) 324 mg PO NOW STA Stop: 10/21/24 22:07 Last Admin: 10/21/24 22:11 Dose: 324 mg Documented By: DULCE MARIA Ioversol (Optiray 320 100ml) 90 ml IV ONCE ONE Stop: 10/21/24 19:26 Last Admin: 10/21/24 19:25 Dose: 90 ml Documented By: ОЛЬГА Ioversol (Optiray 320 125ml) 115 ml IV ONCE ONE Stop: 10/21/24 19:28 Last Admin: 10/21/24 19:27 Dose: 115 ml Documented By: ОЛЬГА Imaging Data Radiologist's Impression: Head CT 10/21/24 19:08 EXAM: CT head/brain wo con CLINICAL HISTORY: neuro deficit, acute stroke suspected TECHNIQUE: Axial non-contrast CT scan of the brain was performed from the skull base to the high parietal region. One of the following dose reduction techniques were utilized for this exam: Automated exposure control, adjustment of the mA and/or kV according to patient size, use of iterative reconstruction. COMPARISON: none. FINDINGS: Brain Parenchyma: Normal attenuation of the cerebral hemispheres, cerebellum, and brainstem. No evidence of acute infarct, hemorrhage, or mass effect. No abnormal areas of hypo- or hyperattenuation. Ventricular System: Ventricles are normal in size and configuration. No evidence of hydrocephalus or ventricular enlargement. Subarachnoid Spaces: Normal sulci and cisterns. No evidence of subarachnoid hemorrhage or extra-axial fluid collections. Cerebellum and Brainstem: Normal size and signal. No masses, lesions, or areas of abnormal density. Orbits: Normal appearance of the globes, optic nerves, and extraocular muscles. No evidence of orbital masses or abnormal density. Sinuses: Clear paranasal sinuses. No evidence of sinusitis or mucosal thickening. Mastoid Air Cells: Clear mastoid air cells. No evidence of mastoiditis. Skull: Normal skull morphology. IMPRESSION: 1. Normal CT of the head without contrast. 2. No evidence of acute infarct or hemorrhage. 3. Early signs of acute infarction may not be detected by CT scan and if clinically indicated, further evaluation by diffusion-weighted MRI may be considered. The report was ready at 07:15 PM COMPLIANCE COORDINATOR, 10/21/2024 and the call was completed at at 07:20 PM [facility], 10/21/[address] Lange was informed regarding the Negative stroke results. Electronically signed by Boogie Perez 10-21-2024 8:22 PM Head CTA 10/21/24 19:08 EXAM: CT angio head w con CLINICAL HISTORY: neuro deficit, acute stroke suspected TECHNIQUE: Axial CT angiography of the head was done with 115 ml optiray 320 IV contrast and sagittal and coronal reformats with MIP reconstructions. One of the following dose reduction techniques were utilized for this exam: Automated exposure control, adjustment of the mA and/or kV according to patient size, use of iterative reconstruction. One of these 3D techniques was utilized: Maximum Intensity Pixel (MIP), 3D Reconstructed Images, Volume Rendered Images, Surface Shaded Rendering. COMPARISON: CT head same day reviewed, 10/21/2024 18:15:26 COMPLIANCE COORDINATOR. FINDINGS: The cavernous portions of bilateral internal carotid arteries show intimal calcification without significant luminal narrowing. Bilateral middle cerebral arteries appear normal in caliber and contrast opacification. Right anterior cerebral artery is hypoplastic with a dominant left anterior cerebral artery, giving cortical branches to both sides, normal variant. The basilar artery and bilateral posterior cerebral arteries appear normal in caliber and contrast opacification. The visualized vertebral arteries appear normal in caliber and contrast opacification. No evidence of definite thrombus / arteriovenous malformation. IMPRESSION: No critical stenosis in CT angiography of the head. The report was ready at 07:15 PM [facility], 10/21/2024 and the call was completed at [phone] at 07:20 PM [facility], 10/21/[address] Lange was informed regarding the Negative stroke results. Electronically signed by Boogie Perez 10-21-2024 8:22 PM Neck CTA 10/21/24 19:08 EXAM: CT angio neck with con CLINICAL HISTORY: neuro deficit, acute stroke suspected TECHNIQUE: Axial CT angiography of the neck was done with contrast and sagittal and coronal reformats with MIP reconstructions. One of the following dose reduction techniques were utilized for this exam: Automated exposure control, adjustment of the mA and/or kV according to patient size, use of iterative reconstruction. One of these 3D techniques was utilized: Maximum Intensity Pixel (MIP), 3D Reconstructed Images, Volume Rendered Images, Surface Shaded Rendering. COMPARISON: None. FINDINGS: The aortic arch shows mild atherosclerotic changes. Normal branching pattern noted. Bilateral common carotid arteries appear normal in caliber and contrast opacification. Calcified plaques are seen at the osteoproximal segments of internal carotid arteries, without significant luminal narrowing. The cervical portions of bilateral internal carotid arteries appear normal in caliber and contrast opacification. Bilateral external carotid arteries appear normal in caliber and contrast opacification. The visualized portions of bilateral vertebral arteries appear normal in caliber and contrast opacification. No arteriovenous malformation was noted. IMPRESSION: No critical stenosis in CT angiography of neck. The report was ready at 07:15 PM [facility], 10/21/2024 and the call was completed at at 07:20 PM [facility], 10/21/[address] Lange was informed regarding the Negative stroke results. Electronically signed by Boogie Perez 10-21-2024 8:21 PM Discharge Plan Visit Data Chief Complaint: Neuro Symptoms/Deficit Stated Complaint: NUMBNESS IN ARM ED Provider: Kaia Lange Discharge Problem: Stroke-like symptoms Patient Disposition: Admitted As Inpatient Condition: Fair Discharge Instructions Interventions: ED Discharge Assessment Last Done: 10/21/24 22:50
[2024-10-21 21:27] LABS: Thyroid Stimulating Hormone 3.911 uIu/ml (0.300-4.500)
[2024-10-21] MEDS: ASPIRIN 81 MG CHEW PO STA (22:11)
[2024-10-21] MEDS ORDERED: PHARMACIST DISCHARGE MED REC CONSULT PRN (22:33)
[2024-10-21] MEDS ORDERED: LORazepam 0.5 MG TAB PO PRN (22:34)
[2024-10-21] MEDS ORDERED: ACETAMINOPHEN 325 MG TAB PO PRN (22:34)
[2024-10-21] MEDS ORDERED: PROMETHAZINE 6.25 MG/50.25 ML BAG IV PRN (22:34)
[2024-10-21] MEDS ORDERED: oxyCODONE HCL IR 5 MG TAB (IMMEDIATE RELEASE) PO PRN (22:34)
[2024-10-21] MEDS: CARBAMIDE PEROXIDE 6.5% 15 ML BTL OTR SCH (23:48)
[2024-10-21] MEDS: SODIUM CHLORIDE 0.9% 1,000 ML IV ONE (23:58)
--- NOTE | 2024-10-22 00:03 | Magnetic Resonance Report ---
Exam(s): MRI HEAD Without Contrast EXAM: MR Head Without Intravenous Contrast CLINICAL HISTORY: Reason for exam: tia. TECHNIQUE: Magnetic resonance images of the head/brain without intravenous contrast in multiple planes. COMPARISON: Prior head CT from October 21, 2024. FINDINGS: Brain: Mild nonspecific white matter changes. No mass. No hemorrhage. No acute infarct. The flow voids at the base of the brain are intact. Ventricles: Unremarkable. No ventriculomegaly. Bones/joints: Unremarkable. No acute fracture. Sinuses: Chronic ethmoid and maxillary sinusitis. No acute sinusitis. Mastoid air cells: Unremarkable as visualized. No mastoid effusion. Orbits: Unremarkable as visualized. IMPRESSION: No evidence of acute intracranial pathology. Electronically signed by: Linda Solano MD 10/22/24 00:03 AM
[2024-10-22] MEDS: THIAMINE HCL 100 MG in SYRINGE 9 ML IV STA (00:58)
[2024-10-22 02:38] VITALS: RESP 16
--- OUTSIDE RECORDS SUMMARY | 2024-10-22 05:21 | External Medical Summary | Summary of Care ---
Author Name Unknown Organization [facility] Address [address] [facility] [place] [address] Phone [phone] Care Team Providers Care Physical Therapy Attendant Name Role Phone Gabbi Pond CHRISTOPHER Primary Care Provider Encounter Details Date Type Department Care Team (Late st Contact Info) Description 08/26/2024 Orders Only PATIENT PORTAL DO NOT DELETE THIS DEPT USED BY [place] [id number] Allergies No known active allergiesdocumented as of this encounter (statuses as of 08/26/2024) Medications Levothyroxine Sodium 75 MCG Oral Tablet (Levoxyl)Indication s:Acquired hypothyroidism TAKE 1 TABLET BY MOUTH IN THE MORNING. ON AN EMPTY STOMACH.. 90 Tablet 3 Active Multivitamin Men 50+ Oral Tablet Take by mouth. Active documented as of this encounter (statuses as of 08/26/2024) Active Problems Problem Noted Date Diagnosed Date Acquired hypothyroidism 08/09/2022 Alcohol dependence, psych tx 02/23/2022 Reflux esophagitis 09/21/2003 NEUROFIBROMATOSIS, UNSPECIFIED documented as of this encounter (statuses as of 08/26/2024) Resolved Problems Problem Noted Date Diagnosed Date Resolved Date Degeneration of cervical intervertebral disc 7 08/01/2024 Brachial neuritis 04/05/2007 08/01/2024 documented as of this encounter (statuses as of 08/26/2024) Immunizations Name Administration Dates Next Due TDAP, Age 7 and older, IM (Adacel) 10/27/2016, documented as of this encounter Social History Tobacco Use Types Packs/Day Years Used Date Smoking Tobacco: Never Smokeless Tobacco: Never Alcohol Use Standard Drinks/Week Comments Yes 0 (1 standard drink = 0.6 oz pur e alcohol) occ AUDIT-C Answer Date Recorded Q1: How often do you have a drink containing alcohol? 4 or more times a week 02/23/2022 Q2: How many drinks containi ng alcohol do you have on a typical day when you are drinking? 7 to 9 Q3: How often do you have si x or more drinks on one occasion? Daily or almost daily 02/23/2022 PHQ-2 Answer Date Recorded PHQ Adult Total Score 0 08/18/2024 Hunger Vital Sign Answer Date Recorded Within the past 12 months, y ou worried that your food would run out before you got the money to buy more. Never true 07/31/19 25 Within the past 12 months, t he food you bought just didn't last and you didn't have money to get more. Never true 07/31/2024 Childcare Answer Date Recorded Do you feel overwhelmed with taking care of a child, family member or friend? No 07/31/2024 Does your family need help f inding childcare? (Household - for ages 0-17 years) Not on file 07/31/2024 Clothing Answer Date Recorded Have you been unable to get clothing when it was really needed? No 07/31/2024 Is your family able to get c lothes or diapers when needed? (Household - for ages 0-17 years) Not on file 07/31/2024 Personal Safety Answer Date Recorded Do you feel unsafe or have concerns for your saf ety? No 07/31/2024 Do you have concerns for you r family's safety? (Household - for ages 0-17 years) Not on file 07/31/2024 Utilities Answer Date Recorded Do you have trouble paying y our heating, water, or electric bill? No 07/31/2024 Is your family able to pay t he heat, water, or electric bill? (Household - for ages 0-17 years) Not on file 07/31/2024 Does your family have access to good internet? (Household - for ages 0-17 years) Not on file 07/31/2024 Employment Status Answer Date Recorded Are you unemployed or without regular income? No 07/31/2024 Does the household have a re gular source of income? (Household - for ages 0-17 years) Not on file 07/31/2024 Social Connections Answer Date Recorded How often do you feel lonely or isolated from th ose around you? Never 07/31/2024 Financial Resource Strain Answer Date R ecorded Do you have any trouble payi ng for your medications, or do you think you might in the future? No 07/31/2024 Does your family have troubl e paying for medicine? (Household - for ages 0-17 years) Not on file 07/31/2024 Transportation Needs Answer Date Record ed Do you have trouble getting a ride to medical visits or work? (Adult - for ages 18 years and over) Not on file 07/31/2024 Does your family have a hard time getting a ride to doctors visits? (Household - for ages 0-17 years) Not on file 07/31/2024 Has lack of transportation k ept you from medical appointments, meetings, work, or from getting things needed for daily living? Check all that apply. No 07/31/2024 Do you (or your family) have trouble finding or paying for a ride (transportation)? (Household - for ages 0-17 years) Not on file 07/31/2024 Housing Stability Answer Date Recorded Do you currently live in a s helter or have no steady place to sleep at night? No 07/31/2024 Do you think you are at risk of becoming homeless? (Adult - for ages 18 years and over) Not on file 07/31/2024 Does your family worry about paying for your home or becoming homeless? (Household - for ages 0-17 years) Not on file 0 07/31/2024 Are you homeless or worried that you might be in the future? No 07/31/2024 Are you (or your family) joseph eless or worried that you might be in the future? (Household - for ages 0-17 years) Not on file Food Insecurity Answer Date Recorded Within the past 12 months, y ou worried that your food would run out before you got the money to buy more. Never true 07/31/19 25 Within the past 12 months, t he food you bought just didn't last and you didn't have money to get more. Never true 07/31/2024 Do you need food for this week? 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 Not on file Not on file documented as of this encounter Plan of Treatment Health Maintenance Due Date Last Done Comments HIV Screening 1975 Hepatitis C Screening 1978 Pneumococcal Vaccine: 50+ Years (1 of 2 - PCV) 1979 Fecal Occult Blood Test 2005 Sigmoidoscopy 2005 Zoster Vaccines (1 of 2) 2010 Colonoscopy 10/22/2015 10/21/2010 Colorectal Cancer Screening 05/10/2022 COVID-19 Vaccine ( - season) 2024 Influenza Vaccine (FLU shot) (#1) 2024 TSH 12/03/2024 12/04/2023, 06/19, 10/04/2022, Additional history exists Cologuard 05/09/2025 05/09/2022, 04/18, 05/02/2022 Depression Screening 08/18/2025 08/18/2024 Diabetes Screening 07/10/2026 07/10/2023, 1 06/20/2021, 04/20/2022, Additional history exists DTap/Tdap Vaccines (3 - Td or Tdap) 10/27/2026 10/27/2016, 07/06/2010, 03/22/2004, Additional history exists Lipid Panel 04/20/2027 04/20/2022, 07/19, 03/22/2004, Additional history exists RETIRED - COLONOSCOPY-EVERY 5 YRS AGES 18-100 Discontinued 10/21/2010 HPV (Gardasil) Vaccine Aged Out No lo nger eligible based on patient's age to complete this topic Hepatitis B Vaccine Aged Out No longe r eligible based on patient's age to complete this topic MENINGOCOCCAL (MENACTRA/MENVEO) Aged Out No longer eligible based on patient's age to complete this topic Meningitis B Vaccine (Bexsero/Trumemba) Aged Out No longer eligible based on patient's age to complete this topic documented as of this encounter Medical Devices Not on filedocumented as of this encounter Care Teams Physical Therapy Attendant Relationship Specialty Start Date End Date Salty September Chloe, GABBYC [address] [place] [address] PCP - General Physician Twitchell Operator 03/03/22 documented as of this encounter
--- OUTSIDE RECORDS SUMMARY | 2024-10-22 05:21 | External Medical Summary | Summary of Care ---
Author Name Unknown Organization [facility] Address [address] [facility] [place] [address] Phone [phone] Care Team Providers Care Semiconductor Assembler Name Role Phone Salty September CHRISTOPHER Primary Care Provider [phone] Encounter Details Date Type Department Care Team (Late st Contact Info) Description 07/08/2024 Population Health External Data Unspecified Department Allergies No known active allergiesdocumented as of this encounter (statuses as of 07/08/2024) Medications Levothyroxine Sodium 75 MCG Oral Tablet (Levoxyl)Indication s:Acquired hypothyroidism Take 1 Tablet by mouth in the morning. on an empty stomach.. 90 Tablet 3 4 Active documented as of this encounter (statuses as of 07/08/2024) Active Problems Problem Noted Date Diagnosed Date Acquired hypothyroidism 08/09/2022 Alcohol dependence, psych tx 02/23/2022 Degeneration of cervical intervertebral disc Brachial neuritis 04/05/2007 Reflux esophagitis 09/21/2003 NEUROFIBROMATOSIS, UNSPECIFIED documented as of this encounter (statuses as of 07/08/2024) Immunizations Name Administration Dates Next Due TDAP, [...] Date Recorded PHQ Adult Total Score 0 02/23/2022 Utilities Answer Date Recorded Do you have trouble paying y our heating, water, or electric bill? (Adult - for ages 18 years and over) Not on file 12/04/2023 Is your family able to pay t he heat, water, or electric bill? (Household - for ages 0-17 years) Not on file 12/04/2023 Does your family have access to good internet? (Household - for ages 0-17 years) Not on file 12/04/2023 Social Connections Answer Date Recorded How often do you feel lonely or isolated from those around you? 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 file Not on file documented as of this encounter Plan of Treatment Upcoming Encounters Date Type Department Care Team (Late st Contact Info) Description 08/14/2024 10:00 AM EST Office Visit Family Practice [facility] [address] [place] [address] Gabbi Pond PA-C [address] [place] [address] Health Maintenance Due Date Last Done Comments HIV Screening 1975 Hepatitis C Screening 1978 Pneumococcal Vaccine: 50+ Years (1 of 2 - PCV) 1979 Fecal Occult Blood Test 2005 Sigmoidoscopy 2005 Zoster Vaccines (1 of 2) 2010 Colonoscopy 10/22/2015 10/21/2010 Colorectal Cancer Screening 05/10/2022 Depression Screening 02/23/2023 02/23/2022 COVID-19 Vaccine (1 - season) 2024 Influenza Vaccine (FLU shot) (#1) 2024 TSH 12/03/2024 12/04/2023, 06/19, 10/04/2022, Additional history exists Cologuard 05/09/2025 05/09/2022, 04/18, 05/02/2022 Diabetes Screening 07/10/2026 07/10/2023, 1 06/20/2021, 04/20/2022, [...] filedocumented as of this encounter Care Teams Semiconductor Assembler Relationship Specialty Start Date End Date Salty Gabbi CHRISTOPHER Cor[place] [address] [place] [address] PCP - General Physician Cherry Pitter 03/03/22 documented as of this encounter
--- OUTSIDE RECORDS SUMMARY | 2024-10-22 05:21 | External Medical Summary | Summary of Care ---
Author Name Unknown Organization [facility] Address [address] [facility] [place] [address] Phone [phone] Care Team Providers Care Optical Engineering Technician Name Role Phone Gabbi Pond PA-C Primary Care Provider [phone] Reason for Visit * Reason Comments Left Without Being Seen Encounter Details Date Type Department Care Team (Late st Contact Info) Description 08/14/2024 10:00 AM EST [facility] [address] [place] [address] Salty Gabbi CHRISTOPHER [place] [address] [place] [address] [address] Well adult exam* Allergies No known active allergiesdocumented as of this encounter (statuses as of 08/14/2024) Medications Levothyroxine Sodium 75 MCG Oral Tablet (Levoxyl)Indication s:Acquired hypothyroidism TAKE 1 TABLET BY MOUTH IN THE MORNING. ON AN EMPTY STOMACH.. 90 Tablet 3 5 Active documented as of this encounter (statuses as of 08/14/2024) Active Problems Problem Noted Date Diagnosed Date Acquired hypothyroidism 08/09/2022 Alcohol dependence, psych tx 02/23/2022 Reflux esophagitis 09/21/2003 NEUROFIBROMATOSIS, UNSPECIFIED documented as of this encounter (statuses as of 08/14/2024) Resolved Problems Problem Noted Date Diagnosed Date Resolved Date Degeneration of cervical intervertebral disc 7 08/01/2024 Brachial neuritis 04/05/2007 08/01/2024 documented as of this encounter (statuses as of 08/14/2024) Immunizations Name Administration Dates Next Due TDAP, [...] Recorded PHQ Adult Total Score 0 02/23/2022 Hunger Vital Sign Answer Date Recorded Within [...] Industry 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 Gabbi Pond Physician Lab Animal Technologist - Certified documented in this encounter Nursing Notes * Michelle Hernandez LPN - 08/14/2024 10:13 AM EST Left without being seen. documented in this encounter Plan of Treatment Upcoming Encounters Date Type Department Care Team (Late st Contact Info) Description 09/10/2024 2:20 PM EDT Office Visit Family Practice [facility] [address] [place] [address] Gabbi Pond PA-C [address] [facility] [place] [address] Health Maintenance Due Date Last Done Comments HIV Screening 1975 Hepatitis C Screening 1978 Pneumococcal Vaccine: 50+ Years (1 of 2 - PCV) 1979 Fecal Occult Blood Test 2005 Sigmoidoscopy 2005 Zoster Vaccines (1 of 2) 2010 Colonoscopy 10/22/2015 10/21/2010 Colorectal Cancer Screening 05/10/2022 Depression Screening 02/23/2023 02/23/2022 COVID-19 Vaccine ( - season) 2024 Influenza [...] Not on filedocumented as of this encounter Visit Diagnoses Diagnosis Well adult exam- Primary Routine general medical examination at a health care facility documented in this encounter Care Teams Optical Engineering Technician Relationship Specialty Start Date End Date Salty Gabbi CHRISTOPHER [place] [address] [facility] [place] [address] PCP - General Physician Lab Animal Technologist 03/03/22 documented as of this encounter
--- OUTSIDE RECORDS SUMMARY | 2024-10-22 05:21 | External Medical Summary | Summary of Care ---
Author Name Unknown Organization [facility] Address [address] [facility] [place] [address] Phone [phone] Care Team Providers Care Audio Visual Director Name Role Phone Gabbi Pond PA-C Primary Care Provider [phone] Reason for Visit * Reason Comments eRx-Medication Refill Encounter Details Date Type Department Care Team (Late st Contact Info) Description 08/03/20[facility] [address] [facility] [place] [address] Gabbi Pond PA-C [address] [facility] [place] [address] Acquired hypothyroidism Allergies No known active allergiesdocumented as of this encounter (statuses as of 08/04/2024) Medications Levothyroxine Sodium 75 MCG Oral Tablet (Levoxyl)Indicatio ns:Acquired hypothyroidism TAKE 1 TABLET BY MOUTH IN THE MORNING. ON AN EMPTY STOMACH.. 90 Tablet 3 08/04/19 25 Active Levothyroxine Sodium 75 MCG Oral Tablet (Levoxyl)Indicatio ns:Acquired hypothyroidism Take 1 Tablet by mouth in the morning. on an empty stomach.. 90 Tablet 3 08/13/19 24 025 Discontinued documented as of this encounter (statuses as of 08/04/2024) Active Problems Problem Noted Date Diagnosed Date Acquired hypothyroidism 08/09/2022 Alcohol dependence, psych tx 02/23/2022 Reflux esophagitis 09/21/2003 NEUROFIBROMATOSIS, UNSPECIFIED documented as of this encounter (statuses as of 08/04/2024) Resolved Problems Problem Noted Date Diagnosed Date Resolved Date Degeneration of cervical intervertebral disc 7 08/01/2024 Brachial neuritis 04/05/2007 08/01/2024 documented as of this encounter (statuses as of 08/04/2024) Immunizations Name Administration Dates Next Due TDAP, [...] 07/31/2024 Does the household have a re lar source of income? 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 ON AN EMPTY STOMACH..Authorizing Provider: GABBI POND AOrkenia User: ALEXANDER KUMAR documented in this encounter Plan of Treatment Upcoming Encounters Date Type Department Care Team (Late st Contact Info) Description 08/14/2024 10:00 AM EST Office Visit Family Practice [facility] [address] [place] [place] [address] Gabbi Pond PA-C [address] [place] [address] Health Maintenance Due Date Last Done Comments [...] as of this encounter Visit Diagnoses Diagnosis Acquired hypothyroidism Unspecified hypothyroidism documented in this encounter Care Teams Audio Visual Director Relationship Specialty Start Date End Date SaltySeptember CHRISTOPHER Corona [address] [place] [address] PCP - General Physician Capital Markets Specialist 03/03/22 documented as of this encounter
--- OUTSIDE RECORDS SUMMARY | 2024-10-22 05:21 | External Medical Summary | Summary of Care ---
Author Name Unknown Organization [facility] Address [address] [facility] [place] [address] Phone [phone] Care Team Providers Care System Support Developer Name Role Phone Gabbi Pond PA-C Primary Care Provider [phone] Reason for Visit * Reason Comments Physical-Exam Encounter Details Date Type Department Care Team (Latest Contact Info) Description 08/18/2024 12:00 PM EST [facility] [address] [place] [id number] Gabbi Pond PA-C [address] [place] [id number] Well adult exam*; Acquired hypothyroidism; Gastroesophageal reflux disease with esophagitis without hemorrhage; Special screening for malignant neoplasms, colon; Screening for depression; Screening for prostate cancer; Screening for diabetes mellitus; Screening for cardiovascular condition Allergies No known active allergiesdocumented as of this encounter (statuses as of 08/18/2024) Medications Levothyroxine Sodium 75 MCG Oral Tablet (Levoxyl)Indication s:Acquired hypothyroidism TAKE 1 TABLET BY MOUTH IN THE MORNING. ON AN EMPTY STOMACH.. 90 Tablet 3 5 Active Multivitamin Men 50+ Oral Tablet Take by mouth. Active documented as of this encounter (statuses as of 08/18/2024) Active Problems Problem Noted Date Diagnosed Date Acquired hypothyroidism 08/09/2022 Alcohol dependence, psych tx 02/23/2022 Reflux esophagitis 09/21/2003 NEUROFIBROMATOSIS, UNSPECIFIED documented as of this encounter (statuses as of 08/18/2024) Resolved Problems Problem Noted Date Diagnosed Date Resolved Date Degeneration of cervical intervertebral disc 7 08/01/2024 Brachial neuritis 04/05/2007 08/01/2024 documented as of this encounter (statuses as of 08/18/2024) Immunizations Name Administration Dates Next Due TDAP, [...] Industry Job Start 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 Job End 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 file Not on file Not on file documented as of this encounter Last Filed Vital Signs Vital Sign Reading Time Taken Comments Blood Pressure 120/80 08/18/2024 12:19 PM EST Pulse 70 08/18/2024 12:19 PM EST Temperature 35.9 °C (96.7 °F) 08/18/2024 1 2:19 PM EST Respiratory Rate 16 08/18/2024 12:1 9 PM EST Oxygen Saturation 97% 08/18/2024 12: 19 PM EST Inhaled Oxygen Concentration - - Weight 88.5 kg (195 lb) 08/18/2024 12:1 9 PM EST patient reported Height 174.4 cm (5' 8.66") 08/18/2024 1 2:19 PM EST Body Mass Index 29.08 08/18/2024 12:19 PM EST documented in this encounter Patient Instructions * Patient Instructions* Jessy Gao NA - 08/18/2024 12:25 PM EST Images from the original note were not included. Colorectal Cancer Screening Colorectal cancer (cancer in the colon or rectum) is a leading cause of cancer deaths in the [place] But it doesn’t have to be. When this cancer is found and removed early, the chances of a full recovery are very good. Because colorectal cancer rarely causes symptoms in its early stages, screening for the disease is important. It’s even more crucial if you have risk factors for the disease. Learn more about colorectal cancer and its risk factors. Then talk to your healthcare provider about being screened. You could be saving your own life. Risk factors for colorectal cancer Your risk of having colorectal cancer increases if you: Are 50 years of age or older Have a family history or personal history of colorectal cancer or polyps Have a personal history of type 2 diabetes, Crohn’s disease, or ulcerative colitis Have an inherited genetic syndrome like Coronel syndrome (also known as HNPCC) or familial adenomatous polyposis (FAP) Are very overweight Are not physically active Smoke Drink a lot of alcohol Eat a lot of red or processed meat The colon and rectum Waste from food you eat enters the colon from the small intestine. As it travels through the colon,the waste (stool) loses water and becomes more solid. Intestinal muscles push it toward the sigmoid--the last section of the colon. Stool then moves into the rectum, where it’s stored until it’s ready to leave the body during a bowel movement. How cancer develops Polyps are growths that form on the inner lining of the colon or rectum. Most are benign, which means they aren’t cancerous. But over time, some polyps can become cancer (malignant). This happens when cells in these polyps begin growing abnormally. In time, malignant cells invade more and more ofthe colon and rectum. The cancer may also spread to nearby organs or lymph nodes or to other parts of the body. Finding and removing polyps can help prevent cancer from ever forming. Your screening Screening means looking for a health problem before you have symptoms. During screening for colorectal cancer, your healthcare provider will ask about your health history, examine you, and do one or more tests. History and exam The history and exam involve the following: Health history. Your healthcare provider will ask about your health history. Mention if a family member has had colon cancer or polyps. Also mention any health problems you have had in the past. Digital rectal exam (EKATERINA). During a EKATERINA, the healthcare provider inserts a lubricated gloved fingerinto the rectum. The test is painless and takes less than a minute. Healthcare providers agree thatthis test alone is not enough to screen for colorectal cancer. Screening test choices: Fecal occult blood test (FOBT) or fecal immunochemical test (FIT) These tests check for occult blood in stool (blood you can’t see). Hidden blood may be a sign of colon polyps or cancer. A small sample of stool is tested for blood in a laboratory. Most often, youcollect this sample at home using a kit your healthcare provider gives you. Follow the instructionscarefully for using this kit. You might need to avoid certain foods and medicines before the test, as directed. Barium enema with contrast (double-contrast barium enema) This test uses X-rays to provide images of the entire colon and rectum. The day before this test, you will need to do a bowel prep to clean out the colon and rectum. A bowel prep is a liquid diet plus strong laxatives or enemas. You will be awake for the test, but you may be given medicine to help you relax. At the start of the test, a radiologist (a healthcare provider who specializes in imagingtests) places a soft tube into the rectum. The tube is used to fill the colon with a contrast liquid (barium) and air. This can be uncomfortable for some people. The liquid helps the colon show up clearly on the X-rays. Because the test uses X-rays, it exposes you to a small amount of radiation. Virtual colonoscopy This exam is also called a CT colonography. It uses a series of X-ray photographs to create a 3-D view of the colon and rectum. The day before the test, you will need to do a bowel prep to clean out your colon. Your healthcare provider will give you instructions on how to do this. During the procedure, you will lie on a table that is part of a special X-ray machine called a CT scanner. A small tube will be placed into your rectum to fill the colon and rectum with air. This can be uncomfortable for some people. Then, the table will move into the machine and pictures will be taken of your colonand rectum. A computer will combine these photos to create a 3-D picture. Because the test uses X-rays, it exposes you to a small amount of radiation. Cologuard Cologuard is an easy to use, noninvasive colon cancer screening test that you can use in the privacy of your own home. It identifies altered DNA and/or blood in stool, which are associated with the possibility of colon cancer or precancer. DNA is continuously shed from cells in the intestinal lining, where it is passed into the stool. Ifcancer or precancer is present, abnormal cells will shed into the colon and stool along with normalcells. A molecular biology process is used to capture specific pieces of DNA for further analysis. Scope exams Here are two types of scope exams: Colonoscopy. This test can be used to find and remove polyps anywhere in the colon or rectum. The day before the test, you will do a bowel prep. This is a liquid diet plus a strong laxative solution or an enema. The bowel prep will cleanse your colon. You will be given instructions for this. Just before the test, you are given a medicine to make you sleepy. Then, a long, flexible, lighted tube called a colonoscope is gently inserted into the rectum and guided through the entire colon. Images ofthe colon are viewed on a video screen. Any polyps that are found are removed and sent to a lab fortesting. If a polyp can’t be removed, a sample of tissue is taken and the polyp might be removed l ater during surgery. You will need to bring someone with you to drive you home after this test. Sigmoidoscopy. This test is similar to colonoscopy, but focuses only on the sigmoid colon and rectum. As with colonoscopy, bowel prep must be done the day before this test. It might not need to be ascomplete as the bowel prep for a colonoscopy. You are awake during the procedure, but you may be given medicine to help you relax. During the test, the healthcare provider guides a thin, flexible, lighted tube called a sigmoidoscope through your rectum and lower colon. The images are displayed on avideo screen. Polyps are removed, if possible, and sent to a lab for testing. Colonoscopy is the only screening test that lets your healthcare provider see the entire colon and rectum. This test also lets your healthcare provider remove any pieces of tissue that need to be looked at by a lab. If something suspicious is found using any other tests, you will likely need a colonoscopy. When to call your healthcare provider after a test Call your healthcare provider if you have any of the following after any screening test: Bleeding Fever of 100.4°F (38°C) or higher, or as directed by your healthcare provider Abdominal pain Vomiting Date Last Reviewed: 04/21/201519990469-[address] [employer] [place] [address], [place] [address]. All rights reserved. This information is not intended as a substitute for professional medical care. Always follow your healthcare professional's instructions. documented in this encounter Progress Notes * Gabbi Pond PA-C - 08/18/2024 12:30 PM EST Chief Complaint: Mark Hogan is a 64 year old male who presents for annual physical History of Present Illness: Feeling well No concerns Denies chest pain, sob, palpitations, edema, headaches, dizzy Appetite good Exercises daily Sleep normal Urination/ bowel movements good Past Medical History: Diagnosis Date Acquired hypothyroidism 08/09/2022 Brachial neuritis 04/05/2007 Degeneration of cervical intervertebral disc 04/05/2007 Past Surgical History: Procedure Laterality Date COLONOSCOPY, DIAGNOSTIC (RECTUM) 10/21/2010 normal colon exam repeat in 5 years MIDDLE EAR SURGERY PROCEDURE NEC 05/28 [facility] Current Outpatient Medications Medication Sig Dispense Refill Levothyroxine Sodium 75 MCG Oral Tablet (Levoxyl) TAKE 1 TABLET BY MOUTH IN THE MORNING. ON AN EMPTY STOMACH.. 90 Tablet 3 Multivitamin Men 50+ Oral Tablet Take by mouth. No current facility-administered medications for this visit. 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 (Adult - for ages 18 years and over): No Does your family have trouble paying for medicine? (Household - for ages 0-17 years): Not on file Food Insecurity: No Food Insecurity (07/31/2024) Food Insecurity Worried About Running Out of Food in the Last Year: Never true Ran Out of Food in the Last Year: Never true Do you need food for this week? (Adult - for ages 18 years and over): No Transportation Needs: No Transportation Needs (07/31/2024) Transportation Needs Do you have trouble getting a ride to medical visits or work? (Adult - for ages 18 years and over):Not on file Does your family have a hard time getting a ride to doctors’ visits? (Household - for ages 0-17 years): Not on file Has lack of transportation kept you from medical appointments, meetings, work, or from getting things needed for daily living? Check all that apply. (Adult - for ages 18 years and over): No Do you (or your family) have trouble finding or paying for a ride (transportation)? (Household - for ages 0-17 years): Not on file Social Connections: Socially Integrated (07/31/2024) Social Connections How often do you feel lonely or isolated from those around you? (Adult - for ages 18 years and over): Never Housing Stability: Low Risk (07/31/2024) Housing Stability Do you currently live in a fci or have no steady place to sleep at night? (Adult - for ages 18 years and over): No Do you think you are at risk of becoming homeless? (Adult - for ages 18 years and over): Not on file Does your family worry about paying for your home or becoming homeless? (Household - for ages 0-17 years): Not on file Are you homeless or worried that you might be in the future? (Adult - for ages 18 years and over): No Are you (or your family) homeless or worried that you might be in the future? (Household - for ages0-17 years): Not on file Family History Problem Relation Name Age of Onset Cancer Mother breast - still living/colon - age 83 Cancer Father lung - age 63 Heart Disorder Grandfather (Maternal) in 60's Heart Disorder Grandfather (Paternal) in 60's Review Of Systems Skin: negative Eyes: negative Ears/Nose/Throat: negative Respiratory: negative Cardiovascular: negative Gastrointestinal: negative Genitourinary: negative Musculoskeletal: pt denies significant joint pain or stiffness Neurologic: negative Psychiatric: negative Hematologic/Lymphatic/Immunologic: negative Endocrine: thyroid disorder PHYSICAL EXAMINATION: BP 120/80 | Pulse 70 | Temp 96.7 °F (35.9 °C) (Tympanic) | Resp 16 | Ht 5' 8.66" (1.744 m) | Wt 195 lb (88.5 kg) Comment: patient reported | SpO2 97% | BMI 29.08 kg/m² | BSA 2.07 m² Head: Normocephalic. No gross lesions. Eye: Grossly normal. PERRLA, EDM, conjuctivae not injected. Ears: Pinnae grossly normal. Canals clear. TM normal, no erythema. Nose: Grossly normal. Midline septum, no discharge. Mouth: Moist mucus membranes. Dentition good. Oropharynx clear, tonsils normal without exudate. Neck: Grossly normal. No bruits. No palpable nodes. Full ROM. Chest: Grossly normal. Heart: R&R. No murmur, rubs, or thrills. S1S2 present. No S3 & S4. Lungs: Clear on auscultation. Percussion normal and symmetric. Abdomen: Soft, BS +, no masses, organomegaly-, no bruit. Extremities: Grossly normal. No clubbing, cyanosis, erythema, or edema. Genitalia: deferred ASSESSMENT/PLAN: (Z00.00) Well adult exam (primary encounter diagnosis) Plan: (E03.9) Acquired hypothyroidism Plan: (K21.00) Gastroesophageal reflux disease with esophagitis without hemorrhage Plan: (Z12.11) Special screening for malignant neoplasms, colon Plan: (Z13.31) Screening for depression Plan: Well adult exam (Primary) Acquired hypothyroidism - TSH WITH FREE T4 IF INDICATED; Future; Expected date: 08/18/2024 Gastroesophageal reflux disease with esophagitis without hemorrhage Special screening for malignant neoplasms, colon - COLOGUARD Screening for depression - DEPRESSION SCREENING PERFORMED Screening for prostate cancer - PSA; Future; Expected date: 08/18/2024 Screening for diabetes mellitus - BASIC METABOLIC PANEL; Future; Expected date: 08/18/2024 Screening for cardiovascular condition - LIPID PANEL WITH DIRECT LDL IF TG IS HIGH; Future; Expected date: 08/18/2024 Diet and exercise discussed. Continue current medications. documented in this encounter Nursing Notes * Jessy Gao NA - 08/18/2024 12:15 PM EST Mark Hogan presents for annual physical exam. Patient denies any concerns at this time. Medications & HM reviewed. documented in this encounter Plan of Treatment Scheduled Orders Name Type Priority Associated Diagnoses Orde r Schedule COLOGUARD Lab Unrestricted Lab Special screening for malignant neoplasms, colon Ordered: 08/18/2024 TSH WITH FREE T4 IF INDICATED Lab Routine Acquired hypothyroidism Expected: 08/18/2024 (Approximate), Expires: 08/18/2025 PSA Lab Routine Screening for prostate cancer Expected: 08/18/2024 (Approximate), Expires: 08/18/2025 BASIC METABOLIC PANEL Lab Routine Screening for diabetes mellitus Expected: 08/18/2024 (Approximate), Expires: 08/18/2025 LIPID PANEL WITH DIRECT LDL IF TG IS HIGH Lab Routine Screening for cardiovascular condition Expected: 08/18/2024, Expires: 08/18/2025 Health Maintenance Due Date Last Done Comments HIV Screening 1975 Hepatitis C Screening 1978 Pneumococcal Vaccine: 50+ Years (1 of 2 - PCV) 1979 Fecal Occult Blood Test 2005 Sigmoidoscopy 2005 Zoster Vaccines (1 of 2) 2010 Colonoscopy 10/22/2015 10/21/2010 Colorectal Cancer Screening 05/10/2022 COVID-19 Vaccine ( season) 2024 Influenza Vaccine (FLU shot) (#1) [...] medical examination at a health care facility Acquired hypothyroidism Unspecified hypothyroidism Gastroesophageal reflux disease with esophagitis without hemorrhage Special screening for malignant neoplasms, colon Screening for depression Screening for prostate cancer Special screening for malignant neoplasm of prostate Screening for diabetes mellitus Screening for cardiovascular condition Screening for other and unspecified cardiovascular conditions documented in this encounter Care Teams System Support Developer Relationship Specialty Start Date End Date Salty September CHRISTOPHER Corona [address] [facility] [place] [id number] PCP - General Physician Wallpaper Printer 03/03/22 documented as of this encounter
[2024-10-22 05:52] LABS: Basophils # (auto) 0.02 K/uL (0.00-0.20); Basophils % (auto) 0.3 %; Eosinophils # (auto) 0.17 K/uL (0.00-0.50); Eosinophils % (auto) 2.2 %; Hematocrit (blood only) 41.2 % (42.0-52.0); Hemoglobin 14.7 g/dl (14.0-18.0); Immature Granulocytes # (auto) 0.02 K/uL (0.01-0.20); Immature Granulocytes % (auto) 0.3 %; Lymphocytes # (auto) 1.47 K/uL (1.20-3.40); Lymphocytes % (auto) 19.4 %; Mean Corpuscular Hemoglobin 29.8 pg (25.0-34.0); Mean Corpuscular Hgb Conc 35.7 g/dL (32.0-36.0); Mean Corpuscular Volume 83.6 fL (80.0-100.0); Mean Platelet Volume 9.8 fL (9.4-12.4); Monocytes # (auto) 0.62 K/uL (0.11-0.59); Monocytes % (auto) 8.2 %; Neutrophils # (auto) 5.29 K/uL (1.40-6.50); Neutrophils % (auto) 69.6 %; Platelet Count 211 K/uL (130-400); RDW Coefficient of Variation 12.1 % (11.5-14.5); RDW Standard Deviation 36.4 fL (36.4-46.3); Red Blood Count 4.93 M/uL (4.70-6.10); White Blood Count 7.59 K/ul (4.8-10.8)
[2024-10-22 06:14] LABS: BUN Creatinine Ratio 11.9 (10-20); Calcium 8.8 mg/dl (8.6-10.3); Chol HDL Ratio 4.7 (0-5); Creatinine Clr Calc Pharmacy 79.9 ml/min
[2024-10-22 07:58] LABS: Estimated Average Glucose 97 mg/dl
[2024-10-22] MEDS: CLOPIDOGREL BISULFATE 300 MG TAB PO STA (08:21)
[2024-10-22] MEDS: ASPIRIN 81 MG ECTAB PO SCH (08:21)
[2024-10-22] MEDS: ENOXAPARIN INJ 40 MG/0.4 ML SYR SQ SCH (08:22)
--- NOTE | 2024-10-22 13:52 | Neurology Consultation ---
Date of Consultation October 22, 2024 Assessment & Plan (1) Stroke-like symptoms: Mark Hogan is a 64 yo M presenting with R sided numbness, negative workup including MRI and CTA. Unclear cause of patients residual numbness given the negative MRI, with facial involvement would not be consistent with cervical sp ine disease, no neck pain. Would treat as TIA, continue aspirin monotherapy and recommend cardiac patch monitor for the episodes he had yesterday before presentation. -- Okay for discharge, neuro follow-up 4-6 weeks -- Cardiac event monitor -- Aspirin monotherapy Telehealth Consultation Telehealth Information Telehealth Information: I performed this visit using a real-time telehealth connection between my location and the patients location ([facility]). After connecting through interactive tele-video, patient was identified by name and date of and/or wristband check.Patient (or authorized healthcare human resources hr representative) was informed that this was a telemedicine visit and it was being conducted confidentially over secure lines. My office door was closed and no one else was present in the room with me.Patient (or authorized healthcare human resources hr representative) provided consent to proceed with the visit, expressed an understanding of privacy and security of the telemedicine visit, and gave permission to have a hospital human resources hr representative in the room in order to assist with the visit and to conduct portions of the visit, as needed. I informed the patient (or authorized healthcare human resources hr representative) that I reviewed their record and presented the opportunity for them to ask any questions regarding the visit today. The patient agreed to participate. History of Present Illness Reason for Consultation: R sided numbness Requesting Physician: Dr. Boyd Attending Physician: Vianey Boyd MD History of Present Illness Mark Hogan is a 64 yo M presenting with three episodes of abnormal sensation yesterday associated with lightheadedness. He felt as if a jolt of electricity went through his body during these attacks. No specific headache or vision changes but has R arm and face numbness that has lingered since yesterday, despite no further shock-like attacks. He has never experienced anything like this before, no history of stroke or TIA but has a family history of TIA. He was not taking any antiplatelet or anticoagulant at home before coming to the ED. Allergies Allergy/AdvReac Type Severity Reaction Status Date / Time No Known Allergies Allergy Verified 10/21/24 19:28 Home Medications Medication Instructions Recorded Confirmed Type trazodone 50 mg tablet 25 mg (1/2 x 50 mg) PO HS PRN 02/22/22 10/21/24 Rx insomnia/depression #30 tabs levothyroxine 75 mcg tablet 75 mcg PO DAILYBB 10/21/24 10/21/24 History Patient History Medical History Hypothyroidism Insomnia Depression, unspecified Suicide attempt Calcific tendinitis of left shoulder Suicidal ideation Surgical History History of ear surgery Family History Mother Breast cancer Father Lung cancer Social History Smoking Status: Never smoker Second Hand Exposure: No; Do You Dip or Chew Tobacco: No; Tobacco Cessation Education Requested by Patient: No Hx Alcohol Use: Yes Alcohol type: beer Hx Substance Use: No Preferred Language: Mac[place] Communication Ability: Effective Visual Impairment: No Limitations Hearing Ability: Normal E Commerce Analyst Required: No Beliefs That Will Affect Care: None Current Living Situation: Significant Other current occupational status: employed 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 Oriented to person, place, and time. Fluent. Comprehension intact. Affect appropriate. Cranial Nerves: II: pupils 3/3 to 2/2, ramirez grossly intact. III/IV/: Versions intact without nystagmus, no gaze preference. VII: Facial expression symmetric VIII: Hearing intact to voice Motor: Strength was symmetric and antigravity throughout. Pronator drift was absent. There were no abnormal movements. Coordination: Finger to nose intact Reflexes: Unable to assess over telemedicine Results & Data Vital Signs (Past 12 Hours) Vital Signs Temp Pulse Pulse Resp BP Pulse Ox O2 Del Method 10/22/24 12:26 36.5 C 54 L 16 120/73 96 Room Air 10/22/24 07:43 36.5 C 67 16 151/81 H 97 Room Air 10/22/24 07:42 63 10/22/24 02:17 36.4 C L 59 L 16 156/93 H 97 Room Air Laboratory Results Abnormal lab results 10/21/24 10/21/24 10/22/24 Range/Units 19:12 19:14 05:23 Hct 41.2 L (42.0-52.0) % [place] # (Auto) 0.62 H (0.11-0.59) K/uL POC Creatinine 1.4 H (0.6-1.3) mg/dl Glucose 107 H 103 H (70-99(Fasting)) mg/dl POC Glucose (other) 109 H (70-99) mg/dl Diagnostic Findings Head CT 10/21/24 19:08 EXAM: CT head/brain wo con CLINICAL HISTORY: neuro deficit, acute stroke suspected TECHNIQUE: Axial non-contrast CT scan of the brain was performed from the skull base to the high parietal region. One of the following dose reduction techniques were utilized for this exam: Automated exposure control, adjustment of the mA and/or kV according to patient size, use of iterative reconstruction. COMPARISON: none. FINDINGS: Brain Parenchyma: Normal attenuation of the cerebral hemispheres, cerebellum, and brainstem. No evidence of acute infarct, hemorrhage, or mass effect. No abnormal areas of hypo- or hyperattenuation. Ventricular System: Ventricles are normal in size and configuration. No evidence of hydrocephalus or ventricular enlargement. Subarachnoid Spaces: Normal sulci and cisterns. No evidence of subarachnoid hemorrhage or extra-axial fluid collections. Cerebellum and Brainstem: Normal size and signal. No masses, lesions, or areas of abnormal density. Orbits: Normal appearance of the globes, optic nerves, and extraocular muscles. No evidence of orbital masses or abnormal density. Sinuses: Clear paranasal sinuses. No evidence of sinusitis or mucosal thickening. Mastoid Air Cells: Clear mastoid air cells. No evidence of mastoiditis. Skull: Normal skull morphology. IMPRESSION: 1. Normal CT of the head without contrast. 2. No evidence of acute infarct or hemorrhage. 3. Early signs of acute infarction may not be detected by CT scan and if clinically indicated, further evaluation by diffusion-weighted MRI may be considered. The report was ready at 07:15 PM ACCOUNTS OFFICER, 10/21/2024 and the call was completed at at 07:20 PM [facility], 10/21/[address] Lange was informed regarding the Negative stroke results. Electronically signed by Boogie Perez 10-21-2024 8:22 PM Head CTA 10/21/24 19:08 EXAM: CT angio head w con CLINICAL HISTORY: neuro deficit, acute stroke suspected TECHNIQUE: Axial CT angiography of the head was done with 115 ml optiray 320 IV contrast and sagittal and coronal reformats with MIP reconstructions. One of the following dose reduction techniques were utilized for this exam: Automated exposure control, adjustment of the mA and/or kV according to patient size, use of iterative reconstruction. One of these 3D techniques was utilized: Maximum Intensity Pixel (MIP), 3D Reconstructed Images, Volume Rendered Images, Surface Shaded Rendering. COMPARISON: CT head same day reviewed, 10/21/2024 18:15:26 ACCOUNTS OFFICER. FINDINGS: The cavernous portions of bilateral internal carotid arteries show intimal calcification without significant luminal narrowing. Bilateral middle cerebral arteries appear normal in caliber and contrast opacification. Right anterior cerebral artery is hypoplastic with a dominant left anterior cerebral artery, giving cortical branches to both sides, normal variant. The basilar artery and bilateral posterior cerebral arteries appear normal in caliber and contrast opacification. The visualized vertebral arteries appear normal in caliber and contrast opacification. No evidence of definite thrombus / arteriovenous malformation. IMPRESSION: No critical stenosis in CT angiography of the head. The report was ready at 07:15 PM ACCOUNTS OFFICER, 10/21/2024 and the call was completed at at 07:20 PM ACCOUNTS OFFICER, 10/21/[address] Lange was informed regarding the Negative stroke results. Electronically signed by Boogie Perez 10-21-2024 8:22 PM Neck CTA 10/21/24 19:08 EXAM: CT angio neck with con CLINICAL HISTORY: neuro deficit, acute stroke suspected TECHNIQUE: Axial CT angiography of the neck was done with contrast and sagittal and coronal reformats with MIP reconstructions. One of the following dose reduction techniques were utilized for this exam: Automated exposure control, adjustment of the mA and/or kV according to patient size, use of iterative reconstruction. One of these 3D techniques was utilized: Maximum Intensity Pixel (MIP), 3D Reconstructed Images, Volume Rendered Images, Surface Shaded Rendering. COMPARISON: None. FINDINGS: The aortic arch shows mild atherosclerotic changes. Normal branching pattern noted. Bilateral common carotid arteries appear normal in caliber and contrast opacification. Calcified plaques are seen at the osteoproximal segments of internal carotid arteries, without significant luminal narrowing. The cervical portions of bilateral internal carotid arteries appear normal in caliber and contrast opacification. Bilateral external carotid arteries appear normal in caliber and contrast opacification. The visualized portions of bilateral vertebral arteries appear normal in caliber and contrast opacification. No arteriovenous malformation was noted. IMPRESSION: No critical stenosis in CT angiography of neck. The report was ready at 07:15 PM [facility], 10/21/2024 and the call was completed at at 07:20 PM [facility], 10/21/[address] Lange was informed regarding the Negative stroke results. Electronically signed by Boogie Perez 10-21-2024 8:21 PM Brain MRI 10/21/24 22:33 Exam(s): MRI HEAD Without Contrast EXAM: MR Head Without Intravenous Contrast CLINICAL HISTORY: Reason for exam: tia. TECHNIQUE: Magnetic resonance images of the head/brain without intravenous contrast in multiple planes. COMPARISON: Prior head CT from October 21, 2024. FINDINGS: Brain: Mild nonspecific white matter changes. No mass. No hemorrhage. No acute infarct. The flow voids at the base of the brain are intact. Ventricles: Unremarkable. No ventriculomegaly. Bones/joints: Unremarkable. No acute fracture. Sinuses: Chronic ethmoid and maxillary sinusitis. No acute sinusitis. Mastoid air cells: Unremarkable as visualized. No mastoid effusion. Orbits: Unremarkable as visualized. IMPRESSION: No evidence of acute intracranial pathology. Electronically signed by: Linda Solano MD 10/22/24 00:03 AM
--- NOTE | 2024-10-22 15:31 | Pharmacy Report ---
- Date of Service October 22, 2024 - Pharmacy CVA/TIA Medication Review Medications to Prevent Stroke handout has been added to the patients discharge packet. Antiplatelet(s) * aspirin 81mg PO daily Cholesterol * High intensity statin deferred due to normal lipid profile. DVT Prophylaxis * Enoxaparin SQ Therapeutic Anticoagulation * No history of Afib/Aflutter noted, cardiac patch recommended on discharge Type 2 Diabetes * Patient does not have T2DM, A1c is excellent
[2024-10-22 15:38] VITALS: BP 124/72; PULSE 63; TEMP 97.5; O2SAT 95
[2024-10-22] MEDS ORDERED: STROKE PATIENT DISCHARGE STA (15:40)
--- NOTE | 2024-10-22 15:46 | Discharge Summary ---
Discharge Summary Date of Service October 22, 2024 Principal Dx & Hospital Course #1 = Principal Diagnosis (1) Stroke-like symptoms: (2) Depression, unspecified: (3) Insomnia: (4) Hypothyroidism: Plan Mr. Hogan is a 64 yo gentleman with history of 64yo M with PMH of acquired hypothyroidism, GERD, history of alcohol dependence who is admitted for stroke rule out. He experienced right sided numbness, including perioral numbness as well as presyncopal sensations. MRI brain was negative as well as CTA of neck. Neurology evaluated patient and recommends treatment as TIA. Patient reports residual numbness sensation, but no clear eitology at this time. On day of discharge, patient reports feeling better overall and ready for discharge to home. Patient states he does not feel he would require rehab services and is ambulating lua with partner. #TIA MRI and CTA negative ECHO 55-60%, mild LVH, no ASD/PFO Asa 81 daily plan for neuro follow-up 4-6 weeks recommend Cardiac event monitor #Hypothyroidism TSH 3.911 continue home Synthroid Notes For Next Care Provider plan for neuro follow-up 4-6 weeks recommend Cardiac event monitor Medication Changes From Visit Aspirin 81 mg daily Admission HPI Per Admitting Provider This is a 64yo M with PMH of acquired hypothyroidism, GERD, history of alcohol dependence and other medical problems listed below who presents with weakness and numbness of R side that started this evening. Patient was in normal state of health until this afternoon when he was driving around town running an errand when he felt "like I was going to blackout". Symptoms resolved quickly and he continued driving to complete errands and returned home. Was attempting to power wash his back porch when sensation occurred again but resolved when he sat down. During a Zoom meeting around 1800, patient developed numbness in right arm extending up to jaw and right side of face. Symptoms did not resolve and was home alone, so he walked into his backyard to get his neighbor's attention, who suggested he come in for further evaluation. Patient decided he wanted to wait at home for 30 minutes to see if symptoms would subside. When standing up from chair felt weak and believes he fell to the ground but is unsure of any further details and event was unwitnessed. Was ultimately driven by his neighbor to the ED for further evaluation. During time of evaluation in ED, he states the numbness in right arm has resolved and speech intact. States he still has some paresthesias of his right face. Denies any weakness at rest but feels he would have a hard time staying balanced if he were to stand up. Was evaluated by [facility] and TNK was not administered. Denies any fever, chills, recent illness, chest pain, palpitations, shortness of breath, nausea, vomiting, abdominal pain, dysuria, diarrhea or constipation. Does not feel confused. 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 History of alcohol dependence per chart review - endorsing drinking 1-2 IPAs 4 nights / week. Follows at [place] for therapy and states he has PTSD and mild depression. Does not take medication for these conditions. Admission Exam Per Admitting Provider General Appearance: WD/WN, vitals as above, NAD, sitting up in bed, pleasant, s poradic conversation but re-directable Head: normocephalic, atraumatic Eyes: normal inspection, PERRL, conjunctivae normal, anicteric sclerae ENT: external ear and nose normal, oropharynx normal Neck: normal visual inspection Respiratory: normal respiratory effort, lungs clear to auscultation, no wheeze, rales, rhonchi. No accessory muscle use Cardiovascular: regular rate, rhythm, normal peripheral pulses, no BLE edema Chest: normal inspection of chest Abdomen/GI: normal bowel sounds, soft, nontender, no hepatosplenomegaly Extremities/Musculoskeletal: no cyanosis or clubbing, extremities motor strength 5/5 Neurologic: PERRL, EOMI, accommodation nl, no face palsy, no dysarthria, CN's II-XI intact bilaterally and moves all extremities, active ROM in all 4 quadrants, 5/5 JEFE RUE, LUE and LLL. Initially 4/5 strength in RLE but when retested minutes later was 5/5 Psychiatric: A+Ox3, anxious Skin: no rashes, normal color, warm/dry Discharge Exam Constitutional WD/WN, vitals as above Respiratory normal respiratory effort, lungs clear to auscultation Cardiovascular RRR, no murmur, no edema Neurologic PERRL, EOMI, accommodation nl, no face palsy, no dysarthria Updated Medication List Medication Instructions Recorded Confirmed Type trazodone 50 mg tablet 25 mg (1/2 x 50 mg) PO HS PRN 02/22/22 10/21/24 Rx insomnia/depression #30 tabs levothyroxine 75 mcg tablet 75 mcg PO DAILYBB 10/21/24 10/21/24 History aspirin 81 mg tablet,delayed 81 mg PO QAM #0 tabs 10/22/24 Rx release Hospital Stay Data Consultations 10/21/24 21:22 ED Decision to Admit Stat 10/22/24 07:48 Consult Neurology Routine Diagnostic Imagining Performed 10/21/24 19:08 CT angio head w con Stat CT angio neck with con Stat CT head/brain wo con Stat 10/21/24 22:33 MRI Brain [MR brain wo con] Stat Pending Results Patient Have Any Pending Studies at Discharge: No Discharge Instructions Given to Patient (Per Discharging Provider) You were admitted for right sided numbness. Stroke work up was negative including MRI and CTA. Unclear cause of patients residual numbness given the negative MRI, with facial involvement would not be consistent with cervical spine disease especially given no neck pain. You will continue aspirin 81mg daily and follow up with your PCP cardiac patch monitor for the episodes he had yesterday before presentation. -- Okay for discharge, plan for neuro follow-up 4-6 weeks -- Cardiac event monitor -- Aspirin 81 mg daily Total Time Total Time Spent Total Time Spent (In Minutes): 45
--- NOTE | 2024-10-24 14:55 | Pharmacy Report ---
Pharmacist Stroke Counseling - Date of Service October 24, 2024 - Scope: Pharmacy has been consulted to provide medication discharge counseling for this patient admitted with transient ischemic attack as per the Pharmacist Discharge Counseling for Stroke Patients Protocol. - Medications on Discharge: Home Medications Medication Instructions Recorded Confirmed levothyroxine 75 mcg tablet 75 mcg PO DAILYBB 10/21/24 10/21/24 New Rx's Medication Instructions Recorded trazodone 50 mg tablet 25 mg (1/2 x 50 mg) PO HS PRN 02/22/22 insomnia/depression #30 tabs aspirin 81 mg tablet,delayed 81 mg PO QAM #0 tabs 10/22/24 release - Action: The above medications, specifically ones for stroke treatment/prophylaxis, have been reviewed in detail with the patient and/or patient sales representative sales manager(s) prior to discharge. This includes indication, common adverse reactions, drug interactions, and medication administration. Medication counseling has been employed using the teach-back method to ensure understanding. - Outcome: The patient and/or patient sales representative sales manager(s) have demonstrated understanding of the medications. Additional comments: Clarified with patient aspirin 81 mg once a day. One 81 mg tablet. Discussed if symptoms return concerning for stroke to come to ED for evaluation immediately. Thank you for allowing pharmacy to be involved in the care of this patient. Please call [phone] with any additional questions
--- NOTE | 2024-10-24 23:38 | Electrocardiogram Report ---
Test Reason : Blood Pressure : */* mmHG Vent. Rate : 79 BPM Atrial Rate : 79 BPM P-R Int : 166 ms QRS Dur : 102 ms QT Int : 370 ms P-R-T Axes : 113 65 108 degrees QTcB Int : 424 ms Normal sinus rhythm Lateral infarct , age undetermined Abnormal ECG When compared with ECG of 01-Jun-1995 00:08, Lateral infarct is now Present Confirmed by Denis Hughes ([id number]) on 10/24/2024 11:38:25 PM Referred By: REFERRED SELF Confirmed By: Denis Hughes
== END 2024-10-22 16:23 | disposition home or self-care (01) ==
LOC: ED 19:02 → 2N 19:02
DX: E03.9 Hypothyroidism, unspecified; G47.00 Insomnia, unspecified; F32.A Depression, unspecified; G45.9 Transient cerebral ischemic attack, unspecified; F10.21 Alcohol dependence, in remission; H61.21 Impacted cerumen, right ear; Z79.890 Hormone replacement therapy; Z79.899 Other long term (current) drug therapy; I10 Essential (primary) hypertension